=== PATIENT | female | born 1945 | race Caucasian/White ===

== ENCOUNTER 2017-04-29 17:21 | Emergency (ER) | payer MEDICARE, MEDICAID ==
[~2017-04-29] VITALS: Ht 152.4 cm; Wt 80.0 kg
[2017-04-29] MEDS ORDERED: normal saline 1000ML IV soln IVB ONE (17:35)
[2017-04-29] MEDS ORDERED: ondansetron/PF 4mg/2ml inj IV ONE (17:45)
[2017-04-29 18:02] LABS: BASOPHILS # (AUTO) 0.1 X10'3 (0-0.2); BASOPHILS % (AUTO) 0.6 % (0-1); EOSINOPHILS # (AUTO) 0.3 X10'3 (0-0.9); EOSINOPHILS % (AUTO) 2.9 % (0-6); HEMATOCRIT 40.4 % (35.0-45.0); HEMOGLOBIN 13.6 g/dl (12.0-16.0); LYMPHOCYTES # (AUTO) 2.8 X10'3 (1.1-4.8); LYMPHOCYTES % (AUTO) 28.1 % (21-51); MEAN CORPUSCULAR HEMOGLOBIN 30.8 PG (27.0-31.0); MEAN CORPUSCULAR HGB CONC 33.8 % (33.0-36.5); MEAN CORPUSCULAR VOLUME 91.3 FL (78-98); MONOCYTES # (AUTO) 0.6 X10'3 (0-0.9); NEUTROPHILS # (AUTO) 6.2 X10'3 (1.8-7.7); NEUTROPHILS % (AUTO) 62.4 % (42-75); PLATELET COUNT 403 X10'3 (140-440); RED BLOOD COUNT 4.43 X10'6 (4.20-5.60); RED CELL DISTRIBUTION WIDTH 14.2 % (11.5-14.5)
[2017-04-29 18:13] LABS: PARTIAL THROMBOPLASTIN TIME 31 SECONDS (22-32); PROTHROMBIN TIME 10.3 SECONDS (9.0-12.0)
[2017-04-29 18:20] LABS: ALANINE AMINOTRANSFERASE 50 U/L (12-78); ALBUMIN 3.3 G/DL (3.4-5.0); ALBUMIN/GLOBULIN RATIO 0.8 (1.1-1.5); ALKALINE PHOSPHATASE 90 IU/L (46-116); ANION GAP 7 (8-16); ASPARTATE AMINO TRANSFERASE 32 U/L (10-37); BILIRUBIN,TOTAL 0.3 MG/DL (0.1-1.0); BLOOD UREA NITROGEN 21 MG/DL (7-18); BUN/CREATININE RATIO 33.9 (6.6-38.0); CALCIUM 9.1 MG/DL (8.5-10.1); CHLORIDE 107 MMOL/L (99-107); CREATININE 0.62 MG/DL (0.40-0.90); GLUCOSE 91 MG/DL (70-104); POTASSIUM 3.8 MMOL/L (3.5-5.1); SODIUM 142 MMOL/L (135-145); TOTAL CARBON DIOXIDE 27.6 MMOL/L (24-32); TOTAL PROTEIN 7.2 G/DL (6.4-8.2); eGFR > 90 ML/MIN
[2017-04-29 18:31] LABS: CREATINE KINASE 83 U/L (26-192)
[2017-04-29] MEDS ORDERED: WHEE1EAC12 MC (19:33)
[2017-04-29] MEDS ORDERED: ONDA4TAB9 PO ×2 (19:33→19:49)
[2017-04-29] MEDS ORDERED: HYDR-3965 PO (19:33)
[2017-04-29] MEDS ORDERED: HYDR-565 PO (19:47)
[2017-04-29 20:58] VITALS: BP 195/86
== END 2017-04-29 21:27 | disposition home or self-care (01) ==
LOC: ER 17:22
DX: S82.191A Other fracture of upper end of right tibia, initial encounter for closed fracture (principal); S82.831A Other fracture of upper and lower end of right fibula, initial encounter for closed fracture; S80.11XA Contusion of right lower leg, initial encounter; Z86.12 Personal history of poliomyelitis; W01.0XXA Fall on same level from slipping, tripping and stumbling without subsequent striking against object, initial encounter; Y93.89 Activity, other specified; Y92.89 Other specified places as the place of occurrence of the external cause; Y99.8 Other external cause status
CPT/HCPCS: 29505; 36415; 73590; 80053; 82550; 82553; 85025; 85610; 85730; 86885; 86900; 86901; 93005; 96374; 96375; 96376; 99285; J2270; J2405; J7030

== ENCOUNTER 2017-08-25 13:16 | Emergency (ER) | payer MEDICARE, MEDICAID ==
[~2017-08-25] VITALS: Ht 152.4 cm; Wt 72.7 kg
[~2017-08-25 13:16] MED LIST: WHEE1EAC12 MC
[2017-08-25 13:50] VITALS: BP 212/85
[2017-08-25] MEDS ORDERED: CLIN-79 PO (14:22)
== END 2017-08-25 14:34 | disposition home or self-care (01) ==
LOC: ER 13:17
DX: K08.89 Other specified disorders of teeth and supporting structures (principal); I25.2 Old myocardial infarction; Z88.0 Allergy status to penicillin; Z88.2 Allergy status to sulfonamides
CPT/HCPCS: 99283

== ENCOUNTER 2022-11-04 07:15 | Inpatient (IN) | payer MEDICARE, MEDICAID ==
[~2022-11-04] VITALS: Ht 157.5 cm; Wt 94.0 kg
[2022-11-04] VITALS (24 sets, daily range): BP systolic 96–155; BP diastolic 49–89; PULSE 85–156; RESP 18–32; TEMP 97.9; O2SAT 92–100
[~2022-11-04 07:15] MED LIST changes: +CLIN-214 PO; +adenosine 3mg/ml 2ml vial IV ONE; +epiNEPHrine 0.1mg/ml 10ml syringe ONE; +etomidate 2mg/ml inj. ONE; +rocuronium 10mg/ml inj IV ONE
[2022-11-04] MEDS ORDERED: albuterol 2.5 MG/3 ML nebule CONTNEB PRN (07:30)
[2022-11-04] MEDS ORDERED: ipratropium/albuterol 3ml nebule NEB ONE (07:30)
[2022-11-04] MEDS ORDERED: methylPREDNISolone sod succ 125mg/2ml vial IV ONE (07:30)
[2022-11-04] MEDS ORDERED: magnesium 2GM in 50ml NS 50 ML IV ONE (07:35)
[2022-11-04] MEDS ORDERED: normal saline 1000ML IV soln IVB ONE (07:50)
[2022-11-04] MEDS ORDERED: CefTRIAXone/D5W-Rocephin 1gm 50 ML IV ONE (07:50)
[2022-11-04] MEDS ORDERED: azithromycin/NS 500mg/250ml 250 ML IV ONE (07:50)
[2022-11-04] MEDS ORDERED: ondansetron/PF 4mg/2ml inj IV ONE (07:55)
[2022-11-04 08:08] LABS: BASOPHILS # (AUTO) 0.1 X10'3 (0-0.2); BASOPHILS % (AUTO) 0.8 % (0-1); EOSINOPHILS % (AUTO) 0 % (0-6); HEMATOCRIT 52.1 % (35.0-45.0); HEMOGLOBIN 17.1 g/dl (12.0-16.0); LYMPHOCYTES # (AUTO) 2.4 X10'3 (1.1-4.8); LYMPHOCYTES % (AUTO) 14.7 % (21-51); MEAN CORPUSCULAR HEMOGLOBIN 29.2 PG (27.0-31.0); MEAN CORPUSCULAR HGB CONC 32.8 g/dL (33.0-36.5); MEAN PLATELET VOLUME 7.6 FL (7.4-10.4); MONOCYTES # (AUTO) 0.5 X10'3 (0-0.9); MONOCYTES % (AUTO) 3.1 % (2-12); NEUTROPHILS # (AUTO) 13.5 X10'3 (1.8-7.7); NEUTROPHILS % (AUTO) 81.4 % (42-75); PLATELET COUNT 481 X10'3 (140-440); RED BLOOD COUNT 5.86 X10'6 (4.20-5.60); RED CELL DISTRIBUTION WIDTH 13.8 % (11.5-14.5); WHITE BLOOD COUNT 16.6 X10'3 (4.5-11.0)
[2022-11-04 08:37] LABS: ALANINE AMINOTRANSFERASE 11 U/L (12-78); ALBUMIN 3.8 G/DL (3.4-5.0); ALBUMIN/GLOBULIN RATIO 0.9 (1.1-1.5); ALKALINE PHOSPHATASE 79 IU/L (46-116); ANION GAP 28 (8-16); ASPARTATE AMINO TRANSFERASE 21 U/L (10-37); BILIRUBIN,TOTAL 0.7 MG/DL (0.1-1.0); BLOOD UREA NITROGEN 14 MG/DL (7-18); BUN/CREATININE RATIO 14.3 (10.0-20.0); CALCIUM 10.3 MG/DL (8.5-10.1); CHLORIDE 100 MMOL/L (99-107); CREATININE 0.98 MG/DL (0.40-0.90); GLUCOSE 166 MG/DL (70-104); SODIUM 139 MMOL/L (135-145); eGFR 55 ML/MIN
[2022-11-04] MEDS ORDERED: LORazepam 2 mg/ml vial IV ONE (08:40)
[2022-11-04 08:42] LABS: TOTAL CARBON DIOXIDE 11.2 MMOL/L (24-32)
--- NOTE | 2022-11-04 08:44 | NUR ---
lab called with critical value for patient. CO2-11.2 and lactic acid is 6.5. Dr. Baker notified.
[2022-11-04] MEDS: nitroGLYCERIN-Tridil 50MG/D5W 250 ML IV SCH ×2 (08:45→09:04)
[2022-11-04] MEDS ORDERED: diltiazem 5mg/ml 5ml inj. IV ONE ×2 (08:45→09:10)
[2022-11-04 08:46] LABS: CLARITY,URINE CLEAR (Clear); COLOR,URINE YELLOW (Yellow); GLUCOSE, URINE NEGATIVE (Neg); KETONES,URINE >=80 mg/dl (Neg); LEUKOCYTE ESTERASE ,URINE NEGATIVE (Neg); NITRITES, URINE NEGATIVE (Neg); OCCULT BLOOD,URINE TRACE-INTACT (Neg); PH,URINE 5.5 (4.8-8.0); PROTEIN,URINE 30 mg/dl (Neg); UROBILINOGEN,URINE 0.2 E.U/dL (0.2-1.0)
[2022-11-04] MEDS ORDERED: propofol 10mg/ml 20ml vial IV ONE (08:50)
[2022-11-04 08:58] LABS: UA COLLECTION TYPE FOLEY CATH
[2022-11-04 09:00] LABS: BACTERIA,URINE FEW /HPF (Neg); MUCUS STRANDS FEW /LPF (Neg); RBC,URINE 0-2 /HPF (0-2); SQUAMOUS EPITHELIAL CELL,UR MODERATE /LPF (FEW); WBC,URINE 0-4 /HPF (0-4)
--- NOTE | 2022-11-04 09:42 | NUR ---
Attempted cardioversion for patient. 34 - Procedure time out pre MD. Pt HR 150's, SBP 75/35 0935 - Synchronized shock to 100 joules - unsuccessful 0936 - 6mg Adenosine given IV push, rate slowed to 40's 0940 - 12mg Adenosine given IV push, rate slowed to 30's (pt in SR as underlying rhythm). 40 - VS: HR 155 ST, BP 101/50, pt intubated prior
[2022-11-04] MEDS ORDERED: normal saline 1000ml 1,000 ML IV ONE ×2 (09:50→13:30)
[2022-11-04 10:14] LABS: ABG BASE EXCESS -18.6 mmol/L (-2.0-2.0); ABG HCO3 7.8 mmol/L (22.0-26.0); ABG OXYGEN SATURATION 97.3 % (94-97); ABG PCO2 (T) 21.5 mmHg (32.0-45.0); ABG PO2 (T) 110.6 mmHg (75.0-100.0); FCOHb 0.3 % (0.0-3.9); FMetHb 0.4 % (0.0-1.5); FO2Hb 96.6 % (94-97); PATIENT TEMPERATURE 36.8; PEEP 8 cm H2O; RESPIRATORY RATE 18 b/min; TIDAL VOLUME 475 mL; TOTAL HEMOGLOBIN 14.7 G/dl (12.0-16.0)
[2022-11-04] MEDS ORDERED: normal saline 500ml IV soln 500 ML IV ONE (10:45)
[2022-11-04] MEDS: normal saline 1000ml 1,000 ML IV SCH ×2 (10:50→21:38)
[2022-11-04] MEDS ORDERED: acetaminophen 325mg tablet PO PRN ×2 (10:50)
[2022-11-04] MEDS ORDERED: magnesium hydroxide 30ml (MOM) UD suspension PO PRN (10:50)
[2022-11-04] MEDS: propofol 1000mg/100ml bottle 100 ML IV PRN (11:34)
--- NOTE | 2022-11-04 12:16 | NUR ---
Report called to NENITA Ferreira in CICU. Will transfer pt with RT.
--- NOTE | 2022-11-04 13:00 | NUR ---
pt received by mike from er. pt sedated on diprivan gtt- fentanyl added. hr 120's- 1 liter of ns bolus added. uo adequate. caregiver at bs
[2022-11-04] MEDS: FENTANYL-0.9 % NACL/PF 100 ML IV SCH (13:17)
--- NOTE | 2022-11-04 13:23 | NUR ---
Nutrition consult: Pt admit for PNA, tachycardia, and hypoxic respiratory failure. Currently intubated with Propofol visualized at bedside to be running at 3.84 mL/hr providing 101 kcal/day. Per EMR pt with an OGT in place though no TF consult at this time. TF recs below for if expected prolonged intubation and to receive nutrition support. Will continue to follow closely and make recommendations as appropriate. Recommendations: 1) IF TF and Propofol at 3.84 mL/hr (101 kcal/day), continuous Vital AF via OGT with 50 mL/hr goal rate. Begin at 20 mL/hr and advance by 30 mL Q8H as tolerated to goal rate. Once at goal to provide 1200 mL total volume/day, 1440 kcal, 90 g protein, and 973 mL water 2) Monitor Propofol rate and need to adjust recs; IF Propofol discontinued increase TF goal rate to 55 mL/hr 3) IF TF, prealbumin q Monday/; daily scaled weights 4) Routine bowel care Addendum: 11/04/22 at [address] Amended: Links added.
[2022-11-04] MEDS: levoFLOXACIN-Levaquin 750MG/D5 150 ML IV SCH (14:29)
[2022-11-04 16:17] LABS: ABG BASE EXCESS -15.3 mmol/L (-2.0-2.0); ABG HCO3 10.5 mmol/L (22.0-26.0); ABG OXYGEN SATURATION 94.8 % (94-97); ABG PCO2 (T) 24.5 mmHg (32.0-45.0); ABG PO2 (T) 73.5 mmHg (75.0-100.0); ALLEN'S TEST POSITIVE; FCOHb 0.3 % (0.0-3.9); FMetHb 0.5 % (0.0-1.5); PATIENT TEMPERATURE 35.7; PEEP 8 cm H2O; RESPIRATORY RATE 18 b/min; TIDAL VOLUME 400 mL; TOTAL HEMOGLOBIN 13.7 G/dl (12.0-16.0)
[2022-11-04] MEDS ORDERED: METO25TA6 PO (16:37)
[2022-11-04] MEDS ORDERED: ASPIRIN PO (16:38)
[2022-11-04] MEDS ORDERED: metoprolol succinate 25mg (24-HOUR) SR. Tablet PO SCH (18:00)
[2022-11-04] MEDS: metoprolol tartrate 12.5mg (1/2 tablet) PO SCH (20:13)
[2022-11-04] MEDS ORDERED: sodium bicarbonate (8.4%) inj. 1 MEQ/ML ML IV ONE ×2 (23:25→23:35)
[2022-11-05] VITALS (35 sets, daily range): BP systolic 92–143; BP diastolic 47–77; PULSE 61–104; RESP 18–24; O2SAT 94–98
[2022-11-05 02:42] LABS: BASOPHILS % (AUTO) 0.2 % (0-1); EOSINOPHILS % (AUTO) 0 % (0-6); HEMATOCRIT 36.4 % (35.0-45.0); HEMOGLOBIN 12.3 g/dl (12.0-16.0); LYMPHOCYTES # (AUTO) 0.7 X10'3 (1.1-4.8); LYMPHOCYTES % (AUTO) 5.4 % (21-51); MEAN CORPUSCULAR HEMOGLOBIN 29.9 PG (27.0-31.0); MEAN CORPUSCULAR HGB CONC 33.8 g/dL (33.0-36.5); MEAN CORPUSCULAR VOLUME 88.5 FL (78-98); MEAN PLATELET VOLUME 7.2 FL (7.4-10.4); MONOCYTES # (AUTO) 0.5 X10'3 (0-0.9); MONOCYTES % (AUTO) 4.3 % (2-12); NEUTROPHILS # (AUTO) 11.3 X10'3 (1.8-7.7); NEUTROPHILS % (AUTO) 90.1 % (42-75); PLATELET COUNT 294 X10'3 (140-440); RED BLOOD COUNT 4.12 X10'6 (4.20-5.60); RED CELL DISTRIBUTION WIDTH 13.8 % (11.5-14.5); WHITE BLOOD COUNT 12.5 X10'3 (4.5-11.0)
[2022-11-05] MEDS: normal saline 1000ml 1,000 ML IV SCH ×3 (02:50→17:57)
[2022-11-05 02:56] LABS: ALANINE AMINOTRANSFERASE 7 U/L (12-78); ALBUMIN 2.2 G/DL (3.4-5.0); ALBUMIN/GLOBULIN RATIO 0.8 (1.1-1.5); ALKALINE PHOSPHATASE 43 IU/L (46-116); ANION GAP 18 (8-16); ASPARTATE AMINO TRANSFERASE 26 U/L (10-37); BILIRUBIN,TOTAL 0.3 MG/DL (0.1-1.0); BLOOD UREA NITROGEN 9 MG/DL (7-18); CALCIUM 8.2 MG/DL (8.5-10.1); CHLORIDE 114 MMOL/L (99-107); CREATININE 0.53 MG/DL (0.40-0.90); GLUCOSE 105 MG/DL (70-104); MAGNESIUM 1.6 MG/DL (1.5-2.4); POTASSIUM 3.4 MMOL/L (3.5-5.1); SODIUM 147 MMOL/L (135-145); TOTAL CARBON DIOXIDE 15.3 MMOL/L (24-32); TRIGLYCERIDES 92 MG/DL (20-135); eGFR > 90 ML/MIN
[2022-11-05 03:10] LABS: ABG BASE EXCESS -9.1 mmol/L (-2.0-2.0); ABG HCO3 13.8 mmol/L (22.0-26.0); ABG OXYGEN SATURATION 95.2 % (94-97); ABG PCO2 (T) 22.7 mmHg (32.0-45.0); ABG PO2 (T) 70.3 mmHg (75.0-100.0); ALLEN'S TEST Modified; FCOHb 0.2 % (0.0-3.9); FMetHb 0.3 % (0.0-1.5); FO2Hb 94.7 % (94-97); PATIENT TEMPERATURE 36.6; PEEP 8 cm H2O; RESPIRATORY RATE 18 b/min; TIDAL VOLUME 400 mL; TOTAL HEMOGLOBIN 13.2 G/dl (12.0-16.0)
[2022-11-05 03:31] LABS: HEMOGLOBIN A1C 5.3 % (4.5-6.2)
[2022-11-05] MEDS ORDERED: magnesium 2GM in 50ml NS 50 ML IV PRN (03:35)
[2022-11-05] MEDS ORDERED: potassium Cl 40MEQ/1/2NS 520ml 520 ML IV PRN (03:35)
[2022-11-05] MEDS ORDERED: magnesium 4gm in 100ml NS 100 ML IV PRN (03:35)
[2022-11-05] MEDS ORDERED: potassium Cl 20 mEq SR tablet PO PRN ×2 (03:35)
[2022-11-05] MEDS: FENTANYL-0.9 % NACL/PF 100 ML IV SCH ×2 (05:12→16:23)
[2022-11-05] MEDS: K and/or MAG REPLACEMENT MC SCH (06:29)
--- NOTE | 2022-11-05 06:30 | NUR ---
Patient in room CICU 2009. I have received report from eron and had the opportunity to ask questions and assume patient care.
[2022-11-05] MEDS: CefTRIAXone 2gm/D5W 50ml BAG 50 ML IV SCH (08:17)
[2022-11-05] MEDS: enoxaparin 40mg/0.4ml syringe SUBCUT SCH (08:18)
[2022-11-05] MEDS: metoprolol tartrate 12.5mg (1/2 tablet) PO SCH ×2 (08:18→20:48)
[2022-11-05] MEDS: levoFLOXACIN-Levaquin 750MG/D5 150 ML IV SCH (08:18)
[2022-11-05 08:25] LABS: PHOSPHORUS 2.9 MG/DL (2.3-4.5)
--- NOTE | 2022-11-05 09:41 | NUR ---
TF consult: Per EMR pt remains intubated at this time. Per verbal d/w RN pt continues receiving Propofol at 20 mcg/kg/min (7.224 mL/hr) providing 191 kcal/day. A scaled weight has been obtained, estimated nutrient needs and TF recs have been adjusted accordingly, see below. Noted pt with a low Clyde of 10. Per EMR pt with no edema or wounds. Will continue to follow closely. Recommendations: 1) Given Propofol at 7.224 mL/hr (191 kcal/day), continuous Vital AF via OGT with 55 mL/hr goal rate to provide 1320 mL total volume/day, 1584 kcal, 99 g protein, and 1071 mL water 2) Additional 120 mL water flush Q4H; monitor serum Na 3) Monitor Propofol rate and need to adjust recs 4) Prealbumin q Monday/ 5) Daily scaled weights 6) Routine bowel care Addendum: 11/05/22 at [address] Amended: Links added.
[2022-11-05] MEDS: pantoprazole 40mg IV 80 MG in normal saline 100ml IV soln 100 ML IV SCH (11:05)
--- NOTE | 2022-11-05 12:00 | NUR ---
tf started. pt sedated but opens eyes and follows commands, nods to questions. update to md re uo, will continue ivf as ordered. plan to keep intubated for 3 days. son and caregiver at bs off and on. son very anxious at times, must educate him re things medical.
[2022-11-05] MEDS: propofol 1000mg/100ml bottle 100 ML IV PRN (13:58)
[2022-11-05] MEDS: mineral oil/petrolatum ophthal oint EACHEYE SCH (20:48)
[2022-11-06] VITALS (34 sets, daily range): BP systolic 94–205; BP diastolic 46–109; PULSE 40–106; RESP 16–26; O2SAT 87–98
[2022-11-06] MEDS: normal saline 1000ml 1,000 ML IV SCH (01:17)
[2022-11-06] MEDS: propofol 1000mg/100ml bottle 100 ML IV PRN (01:17)
[2022-11-06] MEDS: mineral oil/petrolatum ophthal oint EACHEYE SCH ×4 (02:00→19:43)
[2022-11-06 02:44] LABS: BASOPHILS % (AUTO) 0.3 % (0-1); EOSINOPHILS % (AUTO) 0.3 % (0-6); HEMATOCRIT 36.3 % (35.0-45.0); HEMOGLOBIN 12.2 g/dl (12.0-16.0); LYMPHOCYTES # (AUTO) 1.7 X10'3 (1.1-4.8); LYMPHOCYTES % (AUTO) 14.8 % (21-51); MEAN CORPUSCULAR HEMOGLOBIN 29.9 PG (27.0-31.0); MEAN CORPUSCULAR HGB CONC 33.6 g/dL (33.0-36.5); MEAN PLATELET VOLUME 7.6 FL (7.4-10.4); MONOCYTES # (AUTO) 0.5 X10'3 (0-0.9); MONOCYTES % (AUTO) 4.5 % (2-12); NEUTROPHILS # (AUTO) 9.2 X10'3 (1.8-7.7); NEUTROPHILS % (AUTO) 80.1 % (42-75); PLATELET COUNT 245 X10'3 (140-440); RED BLOOD COUNT 4.08 X10'6 (4.20-5.60); RED CELL DISTRIBUTION WIDTH 14.5 % (11.5-14.5); WHITE BLOOD COUNT 11.4 X10'3 (4.5-11.0)
[2022-11-06 03:15] LABS: ALANINE AMINOTRANSFERASE 8 U/L (12-78); ALBUMIN 2.1 G/DL (3.4-5.0); ALBUMIN/GLOBULIN RATIO 0.8 (1.1-1.5); ALKALINE PHOSPHATASE 41 IU/L (46-116); ANION GAP 14 (8-16); ASPARTATE AMINO TRANSFERASE 21 U/L (10-37); BILIRUBIN,TOTAL 0.2 MG/DL (0.1-1.0); BLOOD UREA NITROGEN 13 MG/DL (7-18); BUN/CREATININE RATIO 24.5 (10.0-20.0); CALCIUM 8.4 MG/DL (8.5-10.1); CHLORIDE 114 MMOL/L (99-107); CREATININE 0.53 MG/DL (0.40-0.90); GLUCOSE 115 MG/DL (70-104); MAGNESIUM 1.7 MG/DL (1.5-2.4); PHOSPHORUS 1.8 MG/DL (2.3-4.5); POTASSIUM 3.4 MMOL/L (3.5-5.1); SODIUM 144 MMOL/L (135-145); TOTAL CARBON DIOXIDE 15.8 MMOL/L (24-32); TOTAL PROTEIN 4.8 G/DL (6.4-8.2); eGFR > 90 ML/MIN
[2022-11-06 03:19] LABS: ABG HCO3 14.4 mmol/L (22.0-26.0); ABG OXYGEN SATURATION 93.6 % (94-97); ABG PCO2 (T) 24.1 mmHg (32.0-45.0); FCOHb 0.3 % (0.0-3.9); FMetHb 0.2 % (0.0-1.5); FO2Hb 93.1 % (94-97); PATIENT TEMPERATURE 36.3; PEEP 8 cm H2O; RESPIRATORY RATE 18 b/min; TIDAL VOLUME 400 mL; TOTAL HEMOGLOBIN 12.1 G/dl (12.0-16.0)
[2022-11-06] MEDS ORDERED: potassium phosphate inj 15 MMOL in normal saline 250ml IV soln 250 ML IV ONE (04:35)
[2022-11-06] MEDS: ringers solution, lacted 1,000 ML IV SCH ×2 (05:05→19:08)
[2022-11-06] MEDS ORDERED: etomidate 2mg/ml inj. ONE (08:00)
[2022-11-06] MEDS: K and/or MAG REPLACEMENT MC SCH (08:00)
[2022-11-06] MEDS: metoprolol tartrate 12.5mg (1/2 tablet) PO SCH (08:00)
[2022-11-06] MEDS ORDERED: rocuronium 10mg/ml inj IV ONE (08:00)
[2022-11-06] MEDS: pantoprazole 40mg IV 80 MG in normal saline 100ml IV soln 100 ML IV SCH (08:35)
[2022-11-06] MEDS: CefTRIAXone 2gm/D5W 50ml BAG 50 ML IV SCH (08:35)
[2022-11-06] MEDS: enoxaparin 40mg/0.4ml syringe SUBCUT SCH (08:37)
[2022-11-06] MEDS: nitroGLYCERIN-Tridil 50MG/D5W 250 ML IV SCH (08:45)
[2022-11-06] MEDS: metoprolol tartrate 25mg tablet NG SCH ×3 (10:28→19:41)
--- NOTE | 2022-11-06 10:32 | NUR ---
Malnutrition Consult: Pt unsure of wt loss but reported decreased intake OCCUPATIONAL HEALTH PHYSICIAN per RN Malnutrition Screen. Pt remains intubated w/ mild weakness, no edema/wounds, no prior scaled wt hx current appropriate wt, and hx N/V 2 days OCCUPATIONAL HEALTH PHYSICIAN per EMR. Pt likely w/ some decreased intake OCCUPATIONAL HEALTH PHYSICIAN though at this time lacks minimum malnutrition criteria; will monitor for further malnutrition criteria this admit. Addendum: 11/06/22 at [address] Amended: Links added.
[2022-11-06] MEDS: labetalol 20mg/4ml (5mg/ml) syringe IV PRN ×3 (11:34→17:04)
[2022-11-06] MEDS ORDERED: racepinephrine 11.25mg/0.5ml nebule IH ONE (14:40)
[2022-11-06] MEDS ORDERED: racepinephrine 11.25mg/0.5ml nebule ONE (14:42)
[2022-11-06] MEDS: dexamethasone 4mg/ml inj IV SCH ×2 (14:57→19:41)
[2022-11-06] MEDS ORDERED: fentaNYL/PF 50MCG/1 ML 2ML syringe ONE ×2 (15:15→15:16)
[2022-11-06] MEDS ORDERED: FENTANYL-0.9 % NACL/PF 100 ML IV PRN (15:20)
[2022-11-06] MEDS: propofol 1000mg/100ml bottle 100 ML IV SCH ×2 (17:07→19:42)
[2022-11-06] MEDS: FENTANYL-0.9 % NACL/PF 100 ML IV SCH (17:08)
--- NOTE | 2022-11-06 17:36 | NUR ---
1420 extubated after 45 minutes of tpiece trial, cuff leak was present, BP controlled, patient cooperative. Stridor promptly ensued, racemic epi via neb given, with poor results, manual bagging with increased resistance ensued, vicki down to 30's , sats to 70's, failed bipap, unable to meet volumes. 1520- MD here, reintubated, VSS. 1700- Pt more alert, nodded head to yes when asked if head feels better, (cut hair) as previously discussed with patient and son. 1710- ventilator failure, manually bagged while equipment exchanged, BP 200/100's, labetalol 20mg given IV (3rd dose today.) VSS now.
--- NOTE | 2022-11-06 23:16 | NUR ---
O2 sats consistently >95% on 50% FiO2. Weaned FiO2 to 45% with O2 sats dropping to 86% after 10 min. 100% FiO2 provided until sats >95% and FiO2 returned to 50%.
[2022-11-07] VITALS (28 sets, daily range): BP systolic 88–179; BP diastolic 45–94; PULSE 67–101; RESP 18–20; O2SAT 90–100
[2022-11-07] MEDS: FENTANYL-0.9 % NACL/PF 100 ML IV SCH ×3 (00:39→20:35)
[2022-11-07] MEDS: metoprolol tartrate 25mg tablet NG SCH ×2 (02:18→08:15)
[2022-11-07] MEDS: mineral oil/petrolatum ophthal oint EACHEYE SCH ×4 (02:18→20:37)
[2022-11-07] MEDS: dexamethasone 4mg/ml inj IV SCH ×4 (02:18→20:37)
[2022-11-07 03:14] LABS: ABG BASE EXCESS -8.2 mmol/L (-2.0-2.0); ABG HCO3 15.9 mmol/L (22.0-26.0); ABG OXYGEN SATURATION 96.9 % (94-97); ABG PCO2 (T) 29.1 mmHg (32.0-45.0); ABG PO2 (T) 92.9 mmHg (75.0-100.0); ALLEN'S TEST Modified; FCOHb 0.3 % (0.0-3.9); FMetHb 0.4 % (0.0-1.5); FO2Hb 96.2 % (94-97); PATIENT TEMPERATURE 37.1; PEEP 10 cm H2O; RESPIRATORY RATE 18 b/min; TIDAL VOLUME 400 mL; TOTAL HEMOGLOBIN 13.2 G/dl (12.0-16.0)
[2022-11-07] MEDS ORDERED: polyethylene glycol 3350 17gm powd pack PO ONE (04:24)
[2022-11-07] MEDS ORDERED: furosemide 20 MG/2 ML vial IV ONE (04:25)
[2022-11-07 06:13] LABS: HEMOGLOBIN 12.8 g/dl (12.0-16.0); MEAN CORPUSCULAR HGB CONC 33.2 g/dL (33.0-36.5); MONOCYTES # (AUTO) 0.1 X10'3 (0-0.9)
[2022-11-07 06:16] LABS: BASOPHILS % (AUTO) 0.3 % (0-1); EOSINOPHILS % (AUTO) 0 % (0-6); HEMATOCRIT 38.6 % (35.0-45.0); LYMPHOCYTES # (AUTO) 0.6 X10'3 (1.1-4.8); LYMPHOCYTES % (AUTO) 6.5 % (21-51); MEAN CORPUSCULAR HEMOGLOBIN 29.7 PG (27.0-31.0); MEAN CORPUSCULAR VOLUME 89.7 FL (78-98); MEAN PLATELET VOLUME 8.4 FL (7.4-10.4); MONOCYTES % (AUTO) 1.4 % (2-12); NEUTROPHILS % (AUTO) 91.8 % (42-75); PLATELET COUNT 239 X10'3 (140-440); RED BLOOD COUNT 4.31 X10'6 (4.20-5.60); RED CELL DISTRIBUTION WIDTH 14.8 % (11.5-14.5); WHITE BLOOD COUNT 8.7 X10'3 (4.5-11.0)
[2022-11-07 06:19] LABS: ABG BASE EXCESS -7.3 mmol/L (-2.0-2.0); ABG HCO3 15.3 mmol/L (22.0-26.0); ABG OXYGEN SATURATION 94.6 % (94-97); ABG PCO2 (T) 23.6 mmHg (32.0-45.0); ABG PO2 (T) 63.9 mmHg (75.0-100.0); ALLEN'S TEST Yes; FCOHb 0.3 % (0.0-3.9); FMetHb 0.3 % (0.0-1.5); PATIENT TEMPERATURE 36.2; PEEP 8 cm H2O; RESPIRATORY RATE 18 b/min; TIDAL VOLUME 400 mL; TOTAL HEMOGLOBIN 13.6 G/dl (12.0-16.0)
[2022-11-07 06:25] LABS: MINUTE VOLUME 7.1 L/min; RESPIRATORY RATE (OBSERVED) 18 b/min
[2022-11-07 06:46] LABS: ALANINE AMINOTRANSFERASE 10 U/L (12-78); ALBUMIN 2.1 G/DL (3.4-5.0); ALBUMIN/GLOBULIN RATIO 0.7 (1.1-1.5); ALKALINE PHOSPHATASE 55 IU/L (46-116); ANION GAP 15 (8-16); ASPARTATE AMINO TRANSFERASE 20 U/L (10-37); BILIRUBIN,TOTAL 0.3 MG/DL (0.1-1.0); BLOOD UREA NITROGEN 14 MG/DL (7-18); BUN/CREATININE RATIO 29.2 (10.0-20.0); CALCIUM 8.4 MG/DL (8.5-10.1); CHLORIDE 111 MMOL/L (99-107); CREATININE 0.48 MG/DL (0.40-0.90); GLUCOSE 195 MG/DL (70-104); MAGNESIUM 1.7 MG/DL (1.5-2.4); PHOSPHORUS 3.2 MG/DL (2.3-4.5); POTASSIUM 3.8 MMOL/L (3.5-5.1); PREALBUMIN 18.1 MG/DL (19-36); SODIUM 142 MMOL/L (135-145); TOTAL CARBON DIOXIDE 15.6 MMOL/L (24-32); TOTAL PROTEIN 5.2 G/DL (6.4-8.2); eGFR > 90 ML/MIN
[2022-11-07] MEDS: K and/or MAG REPLACEMENT MC SCH (08:00)
[2022-11-07] MEDS ORDERED: levoFLOXACIN-Levaquin 750MG/D5 150 ML IV SCH (08:00)
[2022-11-07] MEDS: ringers solution, lacted 1,000 ML IV SCH ×2 (08:12→08:37)
[2022-11-07] MEDS: enoxaparin 40mg/0.4ml syringe SUBCUT SCH (08:16)
[2022-11-07] MEDS: CefTRIAXone 2gm/D5W 50ml BAG 50 ML IV SCH (08:22)
[2022-11-07] MEDS: metroNIDAZOLE-Flagyl 500mg/NS 100 ML IV SCH ×2 (10:52→16:12)
[2022-11-07] MEDS ORDERED: acetaminophen 325mg/10.15ml oral unit dose solution OGT PRN ×2 (12:06→12:07)
[2022-11-07] MEDS ORDERED: magnesium hydroxide 30ml (MOM) UD suspension OGT PRN (12:07)
[2022-11-07] MEDS ORDERED: POTASSIUM BICARB 20meq eff tab 20 MEQ TABLET.EFF OGT PRN (12:09)
[2022-11-07] MEDS ORDERED: DEXTROSE 15 GM of carb/4 tabs (each vial/BOTTLE has 4 tablets) PO PRN ×2 (14:45)
[2022-11-07] MEDS ORDERED: glucagon, human recombinant 1mg kit SUBCUT PRN (14:45)
[2022-11-07] MEDS ORDERED: dextrose 50%-water 50ml dispensing syringe IV PRN ×2 (14:45)
[2022-11-07] MEDS: docusate sodium 100mg/10ml UD cup OGT SCH ×2 (14:48→20:36)
[2022-11-07] MEDS: metoclopramide 5mg/5ml oral solution OGT SCH ×2 (14:48→20:36)
[2022-11-07] MEDS: metoprolol tartrate 25mg tablet OGT SCH ×2 (14:49→20:35)
[2022-11-07] MEDS ORDERED: mineral oil/petrolatum ophthal oint EACHEYE SCH (20:00)
[2022-11-07] MEDS: nystatin 15 GM powder TP SCH (20:37)
[2022-11-07] MEDS: polyethylene glycol 3350 17gm powd pack OGT SCH (20:37)
[2022-11-07] MEDS: insulin glargine (Lantus) pen - multi-dose SQ SCH (21:00)
[2022-11-07] MEDS: insulin regular, human U-100 3ml vial - multi-dose SQ SCH (21:01)
[2022-11-08] VITALS (36 sets, daily range): BP systolic 109–245; BP diastolic 52–145; PULSE 65–102; RESP 15–25; O2SAT 90–96
[2022-11-08] MEDS: metroNIDAZOLE-Flagyl 500mg/NS 100 ML IV SCH ×3 (00:04→15:15)
[2022-11-08] MEDS: ringers solution, lacted 1,000 ML IV SCH ×3 (00:06→14:23)
--- NOTE | 2022-11-08 00:10 | NUR ---
TF residual 350 at 2000. 300 returned, pt repositioned to facilitate gastric emptying, and TF rate decreased to 30ml/hr. residual check at 0000 is 470 ml. residual returned and TF turned off at this time
[2022-11-08] MEDS: metoclopramide 5mg/5ml oral solution OGT SCH ×2 (02:00→07:39)
[2022-11-08] MEDS: dexamethasone 4mg/ml inj IV SCH ×4 (02:16→20:29)
[2022-11-08] MEDS: metoprolol tartrate 25mg tablet OGT SCH ×3 (02:16→20:29)
[2022-11-08] MEDS: mineral oil/petrolatum ophthal oint EACHEYE SCH ×4 (02:16→20:00)
[2022-11-08] MEDS: insulin regular, human U-100 3ml vial - multi-dose SQ SCH ×3 (02:28→20:48)
[2022-11-08] MEDS: FENTANYL-0.9 % NACL/PF 100 ML IV SCH ×2 (03:24→11:36)
[2022-11-08 03:30] LABS: ABG BASE EXCESS -5.4 mmol/L (-2.0-2.0); ABG HCO3 18.2 mmol/L (22.0-26.0); ABG OXYGEN SATURATION 96.6 % (94-97); ABG PCO2 (T) 29.4 mmHg (32.0-45.0); ABG PO2 (T) 83.5 mmHg (75.0-100.0); ALLEN'S TEST Modified; FCOHb 0.3 % (0.0-3.9); FMetHb 0.2 % (0.0-1.5); FO2Hb 96.1 % (94-97); PATIENT TEMPERATURE 36.4; PEEP 10 cm H2O; RESPIRATORY RATE 18 b/min; TIDAL VOLUME 400 mL; TOTAL HEMOGLOBIN 13.2 G/dl (12.0-16.0)
[2022-11-08] MEDS: labetalol 20mg/4ml (5mg/ml) syringe IV PRN ×2 (06:06→10:00)
[2022-11-08 06:10] LABS: BASOPHILS % (AUTO) 0.3 % (0-1); EOSINOPHILS % (AUTO) 0 % (0-6); HEMOGLOBIN 12.9 g/dl (12.0-16.0); LYMPHOCYTES # (AUTO) 0.6 X10'3 (1.1-4.8); LYMPHOCYTES % (AUTO) 6.6 % (21-51); MEAN CORPUSCULAR HEMOGLOBIN 29.8 PG (27.0-31.0); MEAN CORPUSCULAR VOLUME 87.8 FL (78-98); MEAN PLATELET VOLUME 8.1 FL (7.4-10.4); MONOCYTES # (AUTO) 0.3 X10'3 (0-0.9); MONOCYTES % (AUTO) 2.9 % (2-12); NEUTROPHILS # (AUTO) 8.5 X10'3 (1.8-7.7); NEUTROPHILS % (AUTO) 90.2 % (42-75); PLATELET COUNT 257 X10'3 (140-440); RED BLOOD COUNT 4.33 X10'6 (4.20-5.60); RED CELL DISTRIBUTION WIDTH 14.5 % (11.5-14.5); WHITE BLOOD COUNT 9.4 X10'3 (4.5-11.0)
[2022-11-08 06:25] LABS: ALANINE AMINOTRANSFERASE 12 U/L (12-78); ALBUMIN 2.2 G/DL (3.4-5.0); ALBUMIN/GLOBULIN RATIO 0.7 (1.1-1.5); ALKALINE PHOSPHATASE 53 IU/L (46-116); ANION GAP 13 (8-16); ASPARTATE AMINO TRANSFERASE 14 U/L (10-37); BILIRUBIN,TOTAL 0.2 MG/DL (0.1-1.0); BLOOD UREA NITROGEN 17 MG/DL (7-18); BUN/CREATININE RATIO 34.7 (10.0-20.0); CALCIUM 8.8 MG/DL (8.5-10.1); CHLORIDE 111 MMOL/L (99-107); CREATININE 0.49 MG/DL (0.40-0.90); GLUCOSE 136 MG/DL (70-104); MAGNESIUM 1.6 MG/DL (1.5-2.4); PHOSPHORUS 2.5 MG/DL (2.3-4.5); POTASSIUM 3.6 MMOL/L (3.5-5.1); SODIUM 144 MMOL/L (135-145); TOTAL CARBON DIOXIDE 20.1 MMOL/L (24-32); TOTAL PROTEIN 5.4 G/DL (6.4-8.2); eGFR > 90 ML/MIN
--- NOTE | 2022-11-08 06:27 | NUR ---
Patient in room CICU 2009. I have received report from eron GUTIERRES and had the opportunity to ask questions and assume patient care.
[2022-11-08] MEDS: pantoprazole 40MG/NS 100ML BAG 100 ML IV SCH (07:13)
[2022-11-08] MEDS: enoxaparin 40mg/0.4ml syringe SUBCUT SCH (07:18)
[2022-11-08] MEDS: docusate sodium 100mg/10ml UD cup OGT SCH ×2 (07:18→20:27)
[2022-11-08] MEDS: nystatin 15 GM powder TP SCH ×2 (07:18→20:32)
[2022-11-08] MEDS: CefTRIAXone 2gm/D5W 50ml BAG 50 ML IV SCH (07:50)
[2022-11-08] MEDS ORDERED: cloNIDine 0.1 mg tablet PO SCH (08:00)
[2022-11-08] MEDS: racepinephrine 11.25mg/0.5ml nebule IH SCH ×2 (08:00→13:13)
[2022-11-08] MEDS: nitroGLYCERIN-Tridil 50MG/D5W 250 ML IV SCH (08:45)
[2022-11-08] MEDS: amLODIPine 5mg tablet OGT SCH (10:12)
[2022-11-08] MEDS ORDERED: metoprolol tartrate 25mg tablet PO ONE ×2 (10:15→10:45)
--- NOTE | 2022-11-08 10:30 | NUR ---
Dr. Juárez, Milena Houston/pharmacist, Lead Laying And Gluing Machine Operator at bedside for team rounding.RN addressed low urine output(15ml-30ml/hour), high residuals( 200-400ml) and high blood pressure.New orders received and carried out. FI02 50% with peep of 10- no change with vent settings per Dr. Juárez.We will monitor.
[2022-11-08] MEDS ORDERED: niCARDipine-NS 40mg/200ml IVPB 200 ML IV ONE (11:09)
[2022-11-08] MEDS: hyDRALAzine 10mg tablet PO SCH ×2 (11:57→20:28)
[2022-11-08] MEDS ORDERED: metoprolol tartrate 25mg tablet OGT SCH (12:00)
[2022-11-08] MEDS: erythromycin ethylsuccinate 200mg/5ml 200ml bottle PO SCH ×2 (13:16→21:02)
[2022-11-08] MEDS: cloNIDine 0.1 mg tablet OGT SCH (15:15)
--- NOTE | 2022-11-08 18:12 | NUR ---
Problems reprioritized. Patient report given, questions answered & plan of care reviewed with Belkis GUTIERRES.
[2022-11-08] MEDS: polyethylene glycol 3350 17gm powd pack OGT SCH (20:29)
[2022-11-08] MEDS: insulin glargine (Lantus) pen - multi-dose SQ SCH (20:49)
[2022-11-08] MEDS: ondansetron/PF 4mg/2ml inj IV PRN (21:20)
[2022-11-09] VITALS (36 sets, daily range): BP systolic 117–167; BP diastolic 51–77; PULSE 62–88; RESP 10–26; O2SAT 83–95
[2022-11-09] MEDS: metroNIDAZOLE-Flagyl 500mg/NS 100 ML IV SCH ×3 (00:20→15:12)
[2022-11-09] MEDS: cloNIDine 0.1 mg tablet OGT SCH ×3 (00:21→15:11)
[2022-11-09] MEDS: FENTANYL-0.9 % NACL/PF 100 ML IV SCH ×2 (00:55→07:29)
[2022-11-09] MEDS: mineral oil/petrolatum ophthal oint EACHEYE SCH ×4 (02:00→20:23)
[2022-11-09] MEDS: dexamethasone 4mg/ml inj IV SCH ×4 (02:17→20:23)
[2022-11-09] MEDS: erythromycin ethylsuccinate 200mg/5ml 200ml bottle PO SCH ×5 (02:17→20:00)
[2022-11-09] MEDS: insulin regular, human U-100 3ml vial - multi-dose SQ SCH ×3 (02:19→14:11)
[2022-11-09 04:05] LABS: ABG BASE EXCESS -2.8 mmol/L (-2.0-2.0); ABG OXYGEN SATURATION 93.4 % (94-97); ABG PCO2 (T) 29.9 mmHg (32.0-45.0); ABG PO2 (T) 65.9 mmHg (75.0-100.0); ALLEN'S TEST Modified; FCOHb 0.3 % (0.0-3.9); FMetHb 0.2 % (0.0-1.5); FO2Hb 92.9 % (94-97); PEEP 8 cm H2O; RESPIRATORY RATE 16 b/min; TIDAL VOLUME 400 mL; TOTAL HEMOGLOBIN 14.1 G/dl (12.0-16.0)
[2022-11-09] MEDS: hyDRALAzine 10mg tablet PO SCH ×3 (05:50→20:24)
[2022-11-09 06:45] LABS: BASOPHILS % (AUTO) 0.2 % (0-1); EOSINOPHILS % (AUTO) 0 % (0-6); HEMATOCRIT 40.3 % (35.0-45.0); HEMOGLOBIN 13.5 g/dl (12.0-16.0); LYMPHOCYTES # (AUTO) 0.8 X10'3 (1.1-4.8); LYMPHOCYTES % (AUTO) 5.7 % (21-51); MEAN CORPUSCULAR HEMOGLOBIN 29.5 PG (27.0-31.0); MEAN CORPUSCULAR HGB CONC 33.6 g/dL (33.0-36.5); MEAN CORPUSCULAR VOLUME 87.9 FL (78-98); MONOCYTES # (AUTO) 0.3 X10'3 (0-0.9); MONOCYTES % (AUTO) 2.2 % (2-12); NEUTROPHILS % (AUTO) 91.9 % (42-75); PLATELET COUNT 330 X10'3 (140-440); RED BLOOD COUNT 4.58 X10'6 (4.20-5.60); RED CELL DISTRIBUTION WIDTH 14.5 % (11.5-14.5); WHITE BLOOD COUNT 14.1 X10'3 (4.5-11.0)
[2022-11-09 06:56] LABS: ALANINE AMINOTRANSFERASE 19 U/L (12-78); ALBUMIN 2.3 G/DL (3.4-5.0); ALBUMIN/GLOBULIN RATIO 0.7 (1.1-1.5); ALKALINE PHOSPHATASE 59 IU/L (46-116); ANION GAP 15 (8-16); ASPARTATE AMINO TRANSFERASE 19 U/L (10-37); BILIRUBIN,TOTAL 0.4 MG/DL (0.1-1.0); BLOOD UREA NITROGEN 19 MG/DL (7-18); BUN/CREATININE RATIO 48.7 (10.0-20.0); CALCIUM 8.8 MG/DL (8.5-10.1); CHLORIDE 107 MMOL/L (99-107); CREATININE 0.39 MG/DL (0.40-0.90); GLUCOSE 151 MG/DL (70-104); MAGNESIUM 1.7 MG/DL (1.5-2.4); PHOSPHORUS 2.5 MG/DL (2.3-4.5); POTASSIUM 3.5 MMOL/L (3.5-5.1); SODIUM 142 MMOL/L (135-145); TOTAL CARBON DIOXIDE 20.4 MMOL/L (24-32); TOTAL PROTEIN 5.6 G/DL (6.4-8.2); eGFR > 90 ML/MIN
[2022-11-09] MEDS: pantoprazole 40MG/NS 100ML BAG 100 ML IV SCH (07:23)
[2022-11-09] MEDS: CefTRIAXone 2gm/D5W 50ml BAG 50 ML IV SCH (07:23)
[2022-11-09] MEDS: enoxaparin 40mg/0.4ml syringe SUBCUT SCH (07:24)
[2022-11-09] MEDS: docusate sodium 100mg/10ml UD cup OGT SCH ×2 (07:25→20:00)
[2022-11-09] MEDS: nystatin 15 GM powder TP SCH ×2 (07:25→20:25)
[2022-11-09] MEDS: amLODIPine 5mg tablet OGT SCH (07:26)
[2022-11-09] MEDS: metoprolol tartrate 25mg tablet OGT SCH ×2 (07:27→20:24)
[2022-11-09] MEDS: ringers solution, lacted 1,000 ML IV SCH (07:27)
--- NOTE | 2022-11-09 10:16 | NUR ---
Discussed in rounds patient's increase in respiratory requirements, now up to 70% FiO2. Change in antibiotic orders. Also, MD aware of decreased urine output between 20-35ml/hour. Continue PO Erythromycin and Fentanyl.
[2022-11-09] MEDS ORDERED: vancomycin 1,750 MG in NS 350ml IV soln IV ONE (11:15)
[2022-11-09] MEDS: cefepime 1GM in NS 100mL IVPB IV SCH ×2 (11:23→16:34)
--- NOTE | 2022-11-09 11:40 | NUR ---
F/u 10/10 Pt remains reintubated and sedated however no longer on propofol, discontinued on 11/08. Pt continues on Vital AF 1.2 kcal at goal rate 55ml/hr this morning. Noted TF held/reduced rate on 11/07 to 11/08 with rate range 0-40ml/hr given high residuals however residuals less than 500ml per EMR. Pt started on erythromycin yesterday per EMR. MD agreeable to initiating water flushes today at 120ml Q4H. LBM on 11/08 with routine bowel care per EMR. Will continue to monitor. Recommendations: 1) Continue Vital AF via OGT with 55 mL/hr goal rate to provide 1320 mL total volume/day, 1584kcal, 99 g protein, and 1071 mL water 2) additional 120 mL water flush Q4H; monitor serum Na 3) Prealbumin q Monday/ 4) Daily scaled weights 5) Routine bowel care Addendum: 11/09/22 at [address] Amended: Links added. Addendum: 11/09/22 at [address] I have reviewed and agree with note.
--- NOTE | 2022-11-09 18:04 | NUR ---
Patient continues to have decreased urine output between 25-35ml/hour. MD aware. Pt continues to saturate 90-92% on 70% FiO2 and 8PEEP. MD aware. Continue antibiotic regimen.
--- NOTE | 2022-11-09 18:26 | NUR ---
Problems reprioritized. Patient report given, questions answered & plan of care reviewed with Ganga GUTIERRES.
[2022-11-09] MEDS: polyethylene glycol 3350 17gm powd pack OGT SCH (21:00)
[2022-11-09] MEDS ORDERED: acetaminophen 1,000mg/100ml IV 100 ML IV PRN (21:40)
[2022-11-09] MEDS ORDERED: furosemide 20 MG/2 ML vial IV ONE (21:45)
[2022-11-09] MEDS: insulin glargine (Lantus) pen - multi-dose SQ SCH (23:24)
[2022-11-10] VITALS (39 sets, daily range): BP systolic 95–148; BP diastolic 40–68; PULSE 60–84; RESP 12–23; O2SAT 68–91
[2022-11-10] MEDS: cefepime 1GM in NS 100mL IVPB IV SCH ×4 (00:31→23:54)
[2022-11-10] MEDS: metroNIDAZOLE-Flagyl 500mg/NS 100 ML IV SCH ×4 (00:32→23:54)
[2022-11-10] MEDS: vancomycin/NS 1 GM ADD-VANTAGE 250 ML IV SCH ×3 (00:32→23:54)
[2022-11-10] MEDS: cloNIDine 0.1 mg tablet OGT SCH ×4 (00:34→23:54)
[2022-11-10] MEDS: mineral oil/petrolatum ophthal oint EACHEYE SCH ×4 (02:00→20:18)
[2022-11-10] MEDS: dexamethasone 4mg/ml inj IV SCH ×4 (03:12→20:18)
[2022-11-10] MEDS: erythromycin ethylsuccinate 200mg/5ml 200ml bottle PO SCH ×2 (03:12→06:33)
[2022-11-10] MEDS: albumin (human) 25% 100 ML IV solution IV SCH ×3 (03:14→14:00)
[2022-11-10 03:25] LABS: ABG BASE EXCESS -3.4 mmol/L (-2.0-2.0); ABG HCO3 19.3 mmol/L (22.0-26.0); ABG OXYGEN SATURATION 93.9 % (94-97); ABG PCO2 (T) 28.5 mmHg (32.0-45.0); ABG PO2 (T) 67.1 mmHg (75.0-100.0); ALLEN'S TEST POSITIVE; FCOHb 0.3 % (0.0-3.9); FMetHb 0.3 % (0.0-1.5); FO2Hb 93.3 % (94-97); PATIENT TEMPERATURE 36.8; PEEP 8 cm H2O; RESPIRATORY RATE 16 b/min; TIDAL VOLUME 400 mL; TOTAL HEMOGLOBIN 14.6 G/dl (12.0-16.0)
[2022-11-10] MEDS: hyDRALAzine 10mg tablet PO SCH ×3 (04:39→20:18)
[2022-11-10] MEDS: FENTANYL-0.9 % NACL/PF 100 ML IV SCH (04:47)
[2022-11-10 06:00] LABS: BASOPHILS % (AUTO) 0.2 % (0-1); EOSINOPHILS % (AUTO) 0 % (0-6); HEMATOCRIT 40.3 % (35.0-45.0); HEMOGLOBIN 13.4 g/dl (12.0-16.0); LYMPHOCYTES # (AUTO) 0.7 X10'3 (1.1-4.8); LYMPHOCYTES % (AUTO) 3.9 % (21-51); MEAN CORPUSCULAR HEMOGLOBIN 29.3 PG (27.0-31.0); MEAN CORPUSCULAR HGB CONC 33.4 g/dL (33.0-36.5); MEAN CORPUSCULAR VOLUME 87.8 FL (78-98); MEAN PLATELET VOLUME 8.1 FL (7.4-10.4); MONOCYTES # (AUTO) 0.8 X10'3 (0-0.9); NEUTROPHILS # (AUTO) 15.4 X10'3 (1.8-7.7); NEUTROPHILS % (AUTO) 90.9 % (42-75); PLATELET COUNT 306 X10'3 (140-440); RED BLOOD COUNT 4.59 X10'6 (4.20-5.60); RED CELL DISTRIBUTION WIDTH 14.8 % (11.5-14.5)
[2022-11-10 06:49] LABS: ALANINE AMINOTRANSFERASE 17 U/L (12-78); ALBUMIN/GLOBULIN RATIO 0.6 (1.1-1.5); ALKALINE PHOSPHATASE 61 IU/L (46-116); ANION GAP 12 (8-16); ASPARTATE AMINO TRANSFERASE 19 U/L (10-37); BILIRUBIN,TOTAL 0.4 MG/DL (0.1-1.0); BLOOD UREA NITROGEN 30 MG/DL (7-18); BUN/CREATININE RATIO 58.8 (10.0-20.0); CALCIUM 8.1 MG/DL (8.5-10.1); CHLORIDE 107 MMOL/L (99-107); CREATININE 0.51 MG/DL (0.40-0.90); GLUCOSE 177 MG/DL (70-104); MAGNESIUM 1.6 MG/DL (1.5-2.4); PHOSPHORUS 2.9 MG/DL (2.3-4.5); POTASSIUM 3.3 MMOL/L (3.5-5.1); SODIUM 140 MMOL/L (135-145); TOTAL CARBON DIOXIDE 20.6 MMOL/L (24-32); TOTAL PROTEIN 5.1 G/DL (6.4-8.2); eGFR > 90 ML/MIN
--- NOTE | 2022-11-10 07:21 | NUR ---
5816 Albumin not infused; restarted at 0700
[2022-11-10] MEDS: enoxaparin 40mg/0.4ml syringe SUBCUT SCH (07:43)
[2022-11-10] MEDS: metoprolol tartrate 25mg tablet OGT SCH ×2 (07:43→20:17)
[2022-11-10] MEDS: docusate sodium 100mg/10ml UD cup OGT SCH ×2 (07:43→20:00)
[2022-11-10] MEDS: nystatin 15 GM powder TP SCH ×2 (07:43→20:16)
[2022-11-10] MEDS: amLODIPine 5mg tablet OGT SCH (07:43)
[2022-11-10] MEDS: insulin regular, human U-100 3ml vial - multi-dose SQ SCH ×2 (07:52→13:54)
[2022-11-10] MEDS: POTASSIUM BICARB 20meq eff tab 20 MEQ TABLET.EFF OGT PRN ×2 (07:55→11:45)
[2022-11-10] MEDS: pantoprazole 40MG/NS 100ML BAG 100 ML IV SCH (08:05)
--- NOTE | 2022-11-10 08:15 | NUR ---
Dr. Juárez at bedside rounding; aware of decreased urine output so far 20-35ml/hour. Orders to D/C Albumin. Hold Lasix for now. MD also aware of o2 saturation 88-92 on 70% Fio2 and PEEP 8.
[2022-11-10] MEDS: nitroGLYCERIN-Tridil 50MG/D5W 250 ML IV SCH (08:45)
--- NOTE | 2022-11-10 18:20 | NUR ---
Problems reprioritized. Patient report given, questions answered & plan of care reviewed with Ganga GUTIERRES.
[2022-11-10] MEDS: polyethylene glycol 3350 17gm powd pack OGT SCH (21:00)
[2022-11-10] MEDS ORDERED: ipratropium/albuterol 3ml nebule NEB PRN (21:45)
[2022-11-10] MEDS: insulin glargine (Lantus) pen - multi-dose SQ SCH (21:58)
[2022-11-10] MEDS ORDERED: VANCOMYCIN LEVEL IV ONE (23:30)
[2022-11-11] VITALS (33 sets, daily range): BP systolic 84–190; BP diastolic 37–84; PULSE 55–93; RESP 15–30; O2SAT 65–96
[2022-11-11] MEDS: VANCOMYCIN 750MG IV in NS 250 ML IV SCH ×3 (00:32→23:43)
[2022-11-11] MEDS: ondansetron/PF 4mg/2ml inj IV PRN ×2 (00:48→07:27)
[2022-11-11] MEDS: dexamethasone 4mg/ml inj IV SCH ×3 (02:00→21:11)
[2022-11-11] MEDS: mineral oil/petrolatum ophthal oint EACHEYE SCH ×4 (02:20→20:00)
[2022-11-11] MEDS: hyDRALAzine 10mg tablet PO SCH ×3 (04:00→21:13)
[2022-11-11 05:26] LABS: ABG BASE EXCESS -3.2 mmol/L (-2.0-2.0); ABG OXYGEN SATURATION 88.8 % (94-97); ABG PCO2 (T) 27.2 mmHg (32.0-45.0); ABG PO2 (T) 56.4 mmHg (75.0-100.0); ALLEN'S TEST Modified; FMetHb 0.3 % (0.0-1.5); FO2Hb 88.5 % (94-97); PATIENT TEMPERATURE 37.3; PEEP 8 cm H2O; RESPIRATORY RATE 16 b/min; TIDAL VOLUME 400 mL
[2022-11-11 06:20] LABS: BASOPHILS # (AUTO) 0.1 X10'3 (0-0.2); BASOPHILS % (AUTO) 0.3 % (0-1); EOSINOPHILS % (AUTO) 0 % (0-6); HEMATOCRIT 39.6 % (35.0-45.0); HEMOGLOBIN 13.1 g/dl (12.0-16.0); LYMPHOCYTES # (AUTO) 1.4 X10'3 (1.1-4.8); LYMPHOCYTES % (AUTO) 6.5 % (21-51); MEAN CORPUSCULAR HEMOGLOBIN 29.3 PG (27.0-31.0); MEAN CORPUSCULAR VOLUME 88.8 FL (78-98); MEAN PLATELET VOLUME 8.5 FL (7.4-10.4); MONOCYTES # (AUTO) 1.5 X10'3 (0-0.9); MONOCYTES % (AUTO) 7.3 % (2-12); NEUTROPHILS # (AUTO) 18.2 X10'3 (1.8-7.7); NEUTROPHILS % (AUTO) 85.9 % (42-75); PLATELET COUNT 311 X10'3 (140-440); RED BLOOD COUNT 4.47 X10'6 (4.20-5.60); WHITE BLOOD COUNT 21.2 X10'3 (4.5-11.0)
[2022-11-11 06:27] LABS: ALANINE AMINOTRANSFERASE 16 U/L (12-78); ALBUMIN 2.3 G/DL (3.4-5.0); ALBUMIN/GLOBULIN RATIO 0.8 (1.1-1.5); ALKALINE PHOSPHATASE 52 IU/L (46-116); ANION GAP 13 (8-16); ASPARTATE AMINO TRANSFERASE 15 U/L (10-37); BILIRUBIN,TOTAL 0.5 MG/DL (0.1-1.0); BLOOD UREA NITROGEN 37 MG/DL (7-18); BUN/CREATININE RATIO 84.1 (10.0-20.0); CALCIUM 8.3 MG/DL (8.5-10.1); CHLORIDE 109 MMOL/L (99-107); CREATININE 0.44 MG/DL (0.40-0.90); GLUCOSE 158 MG/DL (70-104); MAGNESIUM 1.7 MG/DL (1.5-2.4); PHOSPHORUS 2.7 MG/DL (2.3-4.5); POTASSIUM 3.4 MMOL/L (3.5-5.1); SODIUM 142 MMOL/L (135-145); TOTAL PROTEIN 5.1 G/DL (6.4-8.2); eGFR > 90 ML/MIN
--- NOTE | 2022-11-11 06:30 | NUR ---
Patient in room CICU 2009. I have received report from MAIN and had the opportunity to ask questions and assume patient care.
--- NOTE | 2022-11-11 06:39 | NUR ---
PT USES CALL FREITAS- ASKED TO WRITE-SOME DIFFICULTY IN UNDERSTANDING- BUT WORRIES ABOUT SAT PROBE, REASSURED. MINIMAL SEDATION. MUSIC ON. SATS 90 TO 92% ON 85%. GENERALIZED EDEMA.
[2022-11-11] MEDS: FENTANYL-0.9 % NACL/PF 100 ML IV SCH ×3 (06:59→20:20)
[2022-11-11] MEDS: cefepime 1GM in NS 100mL IVPB IV SCH ×3 (07:25→23:44)
[2022-11-11] MEDS: metroNIDAZOLE-Flagyl 500mg/NS 100 ML IV SCH ×3 (07:26→23:44)
[2022-11-11] MEDS: pantoprazole 40MG/NS 100ML BAG 100 ML IV SCH (07:26)
[2022-11-11] MEDS: enoxaparin 40mg/0.4ml syringe SUBCUT SCH (07:28)
[2022-11-11] MEDS: cloNIDine 0.1 mg tablet OGT SCH ×2 (07:29→15:45)
[2022-11-11] MEDS: amLODIPine 5mg tablet OGT SCH (07:29)
[2022-11-11] MEDS: metoprolol tartrate 25mg tablet OGT SCH ×2 (07:29→21:12)
[2022-11-11] MEDS: POTASSIUM BICARB 20meq eff tab 20 MEQ TABLET.EFF OGT PRN ×3 (07:30→15:48)
[2022-11-11] MEDS ORDERED: dexmedetomidin/NS 400mcg/100ml 100 ML IV PRN (07:55)
[2022-11-11] MEDS: docusate sodium 100mg/10ml UD cup OGT SCH ×2 (08:00→20:00)
[2022-11-11] MEDS: nystatin 15 GM powder TP SCH ×2 (08:00→21:13)
[2022-11-11] MEDS ORDERED: furosemide 10 MG/1 ML 10ml inj IV ONE (08:05)
[2022-11-11] MEDS: insulin regular, human U-100 3ml vial - multi-dose SQ SCH ×3 (08:28→21:25)
--- NOTE | 2022-11-11 10:00 | NUR ---
continued to be anxious and restless. Fentanyl increased up to 250mcg. Precedex added up to .8. sats 86 to 87 with peep from 8 to 12. fio2 then up to 95% with sats at 88. rr at 30 to 27. discussion with mds- precedex dcd and antonette added. pt finally to sleep, rr to 18, sats to 93%. large diarrhea of brown stool. caregiver and son here- anxiety continued with them- all until hermelindarijaneen added. caregiver wants medical poa, son doesnt want caregiver to have. pt did nod yes when asked if ok that caregiver have medical poa. call to case coordinator and then administrator social welfare re this.
[2022-11-11] MEDS ORDERED: propofol 1000mg/100ml bottle 100 ML IV ONE (10:02)
[2022-11-11] MEDS: propofol 1000mg/100ml bottle 100 ML IV SCH ×2 (10:06→23:43)
--- NOTE | 2022-11-11 10:38 | NUR ---
Reassessment: Pt remains intubated and tolerating TF at goal rate with GRV WNL. Propofol resumed, visualized at bedside to be running at 4.26 mL/hr providing 112 kcal/day, no changes to TF goal rate warranted at this time. LBM 11/10 per EMR. Will continue to follow and make recommendations as appropriate. Recommendations: 1) Given Propofol at 4.26 mL/hr (112 kcal/day), continuous Vital AF via OGT with 55 mL/hr goal rate to provide 1320 mL total volume/day, 1584 kcal, 99 g protein, and 1071 mL water 2) Monitor Propofol rate and need to adjust recs; IF Propofol discontinued increase Vital AF goal rate to 65 mL/hr 3) Additional 120 mL water flush Q4H; monitor serum Na 4) Prealbumin q Monday/ 5) Daily scaled weights 6) Routine bowel care Addendum: 11/11/22 at [address] Amended: Links added.
[2022-11-11 12:23] LABS: HIV ANTIBODY 1&2 RAPID NON-REACTIVE (Neg)
--- NOTE | 2022-11-11 15:00 | NUR ---
pt sedated on fentanyl and diprivan. sbp down to 80's- diprivan decreased to 5, then 3 mcg
[2022-11-11] MEDS: polyethylene glycol 3350 17gm powd pack OGT SCH (21:00)
[2022-11-11] MEDS: furosemide 40mg/4ml inj IV SCH (21:11)
[2022-11-11] MEDS: insulin glargine (Lantus) pen - multi-dose SQ SCH (21:24)
[2022-11-12] VITALS (35 sets, daily range): BP systolic 87–175; BP diastolic 37–94; PULSE 59–101; RESP 14–20; O2SAT 60–96
[2022-11-12] MEDS: mineral oil/petrolatum ophthal oint EACHEYE SCH ×4 (02:04→20:00)
[2022-11-12] MEDS: insulin regular, human U-100 3ml vial - multi-dose SQ SCH ×4 (02:05→21:24)
[2022-11-12 02:49] LABS: BASOPHILS % (AUTO) 0.2 % (0-1); EOSINOPHILS % (AUTO) 0.1 % (0-6); HEMATOCRIT 35.2 % (35.0-45.0); HEMOGLOBIN 11.6 g/dl (12.0-16.0); LYMPHOCYTES # (AUTO) 0.7 X10'3 (1.1-4.8); LYMPHOCYTES % (AUTO) 3.9 % (21-51); MEAN CORPUSCULAR HEMOGLOBIN 29.3 PG (27.0-31.0); MEAN CORPUSCULAR VOLUME 88.7 FL (78-98); MEAN PLATELET VOLUME 8.6 FL (7.4-10.4); MONOCYTES % (AUTO) 5.6 % (2-12); NEUTROPHILS # (AUTO) 15.7 X10'3 (1.8-7.7); NEUTROPHILS % (AUTO) 90.2 % (42-75); PLATELET COUNT 210 X10'3 (140-440); RED BLOOD COUNT 3.96 X10'6 (4.20-5.60); WHITE BLOOD COUNT 17.4 X10'3 (4.5-11.0)
[2022-11-12 03:12] LABS: ALANINE AMINOTRANSFERASE 14 U/L (12-78); ALBUMIN 1.9 G/DL (3.4-5.0); ALBUMIN/GLOBULIN RATIO 0.7 (1.1-1.5); ALKALINE PHOSPHATASE 47 IU/L (46-116); ANION GAP 13 (8-16); ASPARTATE AMINO TRANSFERASE 13 U/L (10-37); BILIRUBIN,TOTAL 0.3 MG/DL (0.1-1.0); BLOOD UREA NITROGEN 43 MG/DL (7-18); BUN/CREATININE RATIO 72.9 (10.0-20.0); CALCIUM 7.8 MG/DL (8.5-10.1); CHLORIDE 110 MMOL/L (99-107); CREATININE 0.59 MG/DL (0.40-0.90); GLUCOSE 153 MG/DL (70-104); MAGNESIUM 1.7 MG/DL (1.5-2.4); PHOSPHORUS 3.3 MG/DL (2.3-4.5); POTASSIUM 4.2 MMOL/L (3.5-5.1); SODIUM 143 MMOL/L (135-145); TOTAL CARBON DIOXIDE 20.5 MMOL/L (24-32); TOTAL PROTEIN 4.7 G/DL (6.4-8.2); TRIGLYCERIDES 58 MG/DL (20-135); eGFR > 90 ML/MIN
[2022-11-12 03:30] LABS: ABG BASE EXCESS -4.7 mmol/L (-2.0-2.0); ABG HCO3 19.6 mmol/L (22.0-26.0); ABG OXYGEN SATURATION 91.9 % (94-97); ABG PCO2 (T) 34.3 mmHg (32.0-45.0); ABG PO2 (T) 67.5 mmHg (75.0-100.0); ALLEN'S TEST Modified; FCOHb 0.3 % (0.0-3.9); FMetHb 0.3 % (0.0-1.5); FO2Hb 91.3 % (94-97); PATIENT TEMPERATURE 37.3; PEEP 12 cm H2O; RESPIRATORY RATE 14 b/min; TIDAL VOLUME 400 mL; TOTAL HEMOGLOBIN 13.6 G/dl (12.0-16.0)
[2022-11-12] MEDS: hyDRALAzine 10mg tablet PO SCH ×3 (04:00→20:00)
--- NOTE | 2022-11-12 06:30 | NUR ---
Patient in room CICU 2009. I have received report from boris lan and had the opportunity to ask questions and assume patient care.
[2022-11-12 07:51] LABS: ANISOCYTOSIS 1+; PLATELET ESTIMATE NORMAL; TOTAL CELLS COUNTED 100
[2022-11-12] MEDS: metoprolol tartrate 25mg tablet OGT SCH ×2 (08:00→21:21)
[2022-11-12] MEDS: cloNIDine 0.1 mg tablet OGT SCH ×3 (08:00→16:49)
[2022-11-12] MEDS: amLODIPine 5mg tablet OGT SCH (08:00)
[2022-11-12] MEDS: docusate sodium 100mg/10ml UD cup OGT SCH ×2 (08:00→19:39)
--- NOTE | 2022-11-12 08:00 | NUR ---
pt awake despite sedation, but smiling, pretending to move with music. obeys commands, calm. son mercedes in-asked pt if she had decided to put zoe, her caregiver as her medical poa. she nodded yes. son states that is not a good idea. nurse told son that discussing this was upsetting pt and that she cant legally sign as she is sedated.
[2022-11-12] MEDS: dexamethasone 4mg/ml inj IV SCH ×2 (08:14→21:20)
[2022-11-12] MEDS: enoxaparin 40mg/0.4ml syringe SUBCUT SCH (08:15)
[2022-11-12] MEDS: nystatin 15 GM powder TP SCH ×2 (08:15→20:00)
[2022-11-12] MEDS: metroNIDAZOLE-Flagyl 500mg/NS 100 ML IV SCH ×2 (08:16→16:49)
[2022-11-12] MEDS: cefepime 1GM in NS 100mL IVPB IV SCH ×2 (08:16→16:50)
[2022-11-12] MEDS: pantoprazole 40MG/NS 100ML BAG 100 ML IV SCH (08:16)
[2022-11-12] MEDS: furosemide 40mg/4ml inj IV SCH ×2 (08:17→21:20)
[2022-11-12] MEDS: nitroGLYCERIN-Tridil 50MG/D5W 250 ML IV SCH (08:45)
[2022-11-12] MEDS: FENTANYL-0.9 % NACL/PF 100 ML IV SCH ×2 (11:22→18:22)
[2022-11-12] MEDS ORDERED: VANCOMYCIN LEVEL IV ONE (11:30)
[2022-11-12] MEDS: VANCOMYCIN 750MG IV in NS 250 ML IV SCH ×2 (12:00→22:28)
--- NOTE | 2022-11-12 12:00 | NUR ---
caregiver zoe in- stating son had grabbed him at the house before coming to hospital over medical poa. discussed with him about notifying police, which he did and possibly not visiting together. aware of securitys assistance if needed. diprivan increased and later decreased as questionable how much pt was getting as tubing malfunctioning r/t port closed.
[2022-11-12] MEDS: propofol 1000mg/100ml bottle 100 ML IV SCH (16:58)
--- NOTE | 2022-11-12 18:30 | NUR ---
Patient in room CICU 2009. I have received report from Lavern GUTIERRES and had the opportunity to ask questions and assume patient care.
[2022-11-12] MEDS: polyethylene glycol 3350 17gm powd pack OGT SCH (21:00)
[2022-11-12] MEDS: insulin glargine (Lantus) pen - multi-dose SQ SCH (21:23)
[2022-11-13] VITALS (36 sets, daily range): BP systolic 96–168; BP diastolic 36–79; PULSE 60–89; RESP 14–26; O2SAT 85–96
[2022-11-13] MEDS: cloNIDine 0.1 mg tablet OGT SCH ×3 (00:21→16:16)
[2022-11-13] MEDS: cefepime 1GM in NS 100mL IVPB IV SCH ×2 (00:22→07:42)
[2022-11-13] MEDS: metroNIDAZOLE-Flagyl 500mg/NS 100 ML IV SCH (01:06)
[2022-11-13] MEDS: FENTANYL-0.9 % NACL/PF 100 ML IV SCH ×4 (01:07→22:02)
[2022-11-13] MEDS: mineral oil/petrolatum ophthal oint EACHEYE SCH ×4 (02:09→20:28)
[2022-11-13] MEDS: insulin regular, human U-100 3ml vial - multi-dose SQ SCH ×4 (02:11→20:48)
[2022-11-13 02:55] LABS: ABG BASE EXCESS -2.5 mmol/L (-2.0-2.0); ABG HCO3 22.5 mmol/L (22.0-26.0); ABG OXYGEN SATURATION 91.4 % (94-97); ABG PCO2 (T) 38.8 mmHg (32.0-45.0); ABG PO2 (T) 60.4 mmHg (75.0-100.0); ALLEN'S TEST Modified; FCOHb 0.3 % (0.0-3.9); FMetHb 0.3 % (0.0-1.5); FO2Hb 90.9 % (94-97); PATIENT TEMPERATURE 36.7; PEEP 12 cm H2O; RESPIRATORY RATE 14 b/min; TIDAL VOLUME 400 mL; TOTAL HEMOGLOBIN 11.7 G/dl (12.0-16.0)
[2022-11-13 03:47] LABS: BASOPHILS % (AUTO) 0.3 % (0-1); EOSINOPHILS % (AUTO) 0.2 % (0-6); HEMATOCRIT 32.7 % (35.0-45.0); HEMOGLOBIN 10.7 g/dl (12.0-16.0); LYMPHOCYTES # (AUTO) 0.7 X10'3 (1.1-4.8); MEAN CORPUSCULAR HEMOGLOBIN 29.1 PG (27.0-31.0); MEAN CORPUSCULAR HGB CONC 32.7 g/dL (33.0-36.5); MEAN CORPUSCULAR VOLUME 89.1 FL (78-98); MEAN PLATELET VOLUME 9.1 FL (7.4-10.4); MONOCYTES # (AUTO) 0.6 X10'3 (0-0.9); MONOCYTES % (AUTO) 3.4 % (2-12); NEUTROPHILS # (AUTO) 16.5 X10'3 (1.8-7.7); NEUTROPHILS % (AUTO) 92.1 % (42-75); PLATELET COUNT 161 X10'3 (140-440); RED BLOOD COUNT 3.67 X10'6 (4.20-5.60); RED CELL DISTRIBUTION WIDTH 15.1 % (11.5-14.5); WHITE BLOOD COUNT 17.9 X10'3 (4.5-11.0)
[2022-11-13 03:53] LABS: ALANINE AMINOTRANSFERASE 12 U/L (12-78); ALBUMIN 1.6 G/DL (3.4-5.0); ALBUMIN/GLOBULIN RATIO 0.5 (1.1-1.5); ALKALINE PHOSPHATASE 54 IU/L (46-116); ANION GAP 11 (8-16); ASPARTATE AMINO TRANSFERASE 16 U/L (10-37); BILIRUBIN,TOTAL 0.4 MG/DL (0.1-1.0); BLOOD UREA NITROGEN 46 MG/DL (7-18); BUN/CREATININE RATIO 79.3 (10.0-20.0); CALCIUM 7.8 MG/DL (8.5-10.1); CHLORIDE 110 MMOL/L (99-107); CREATININE 0.58 MG/DL (0.40-0.90); GLUCOSE 134 MG/DL (70-104); MAGNESIUM 1.6 MG/DL (1.5-2.4); POTASSIUM 3.8 MMOL/L (3.5-5.1); SODIUM 143 MMOL/L (135-145); TOTAL CARBON DIOXIDE 21.9 MMOL/L (24-32); TOTAL PROTEIN 4.6 G/DL (6.4-8.2); eGFR > 90 ML/MIN
[2022-11-13] MEDS: hyDRALAzine 10mg tablet PO SCH ×3 (04:00→20:00)
[2022-11-13] MEDS: propofol 1000mg/100ml bottle 100 ML IV SCH ×2 (04:27→15:24)
--- NOTE | 2022-11-13 06:42 | NUR ---
Problems reprioritized. Patient report given, questions answered & plan of care reviewed with Samanta GUTIERRES.
[2022-11-13] MEDS: docusate sodium 100mg/10ml UD cup OGT SCH ×2 (07:20→20:00)
[2022-11-13] MEDS: furosemide 40mg/4ml inj IV SCH ×2 (07:41→20:32)
[2022-11-13] MEDS: dexamethasone 4mg/ml inj IV SCH ×4 (07:41→20:32)
[2022-11-13] MEDS: pantoprazole 40MG/NS 100ML BAG 100 ML IV SCH (07:42)
[2022-11-13] MEDS: nystatin 15 GM powder TP SCH ×2 (07:44→20:31)
[2022-11-13] MEDS: enoxaparin 40mg/0.4ml syringe SUBCUT SCH (07:44)
[2022-11-13] MEDS: metoprolol tartrate 25mg tablet OGT SCH ×2 (07:45→20:31)
[2022-11-13] MEDS: amLODIPine 5mg tablet OGT SCH (07:45)
[2022-11-13] MEDS ORDERED: VORICONAZOLE IV SCH (08:00)
[2022-11-13] MEDS ORDERED: NORMAL SALINE IV SCH (08:00)
[2022-11-13] MEDS: meropenem inj 1 GM in normal saline 100ml IV soln 100 ML IV SCH (15:19)
--- NOTE | 2022-11-13 18:25 | NUR ---
Patient in room CICU 2009. I have received report from Samanta GUTIERRES and had the opportunity to ask questions and assume patient care.
[2022-11-13] MEDS: polyethylene glycol 3350 17gm powd pack OGT SCH (20:31)
[2022-11-13] MEDS: insulin glargine (Lantus) pen - multi-dose SQ SCH (20:46)
[2022-11-13] MEDS ORDERED: hydrALAZINE 20mg/ml inj. IV PRN (21:15)
--- NOTE | 2022-11-13 21:45 | NUR ---
Rounds with Jessica, orders to hold scheduled blood pressure meds to keep pt well sedated, can give PRN IV antihypertensives if needed.
[2022-11-13] MEDS: lactobacillus acidophilus cap PO SCH (22:05)
[2022-11-13] MEDS: VANCOMYCIN 750MG IV in NS 250 ML IV SCH (23:13)
[2022-11-14] VITALS (36 sets, daily range): BP systolic 94–162; BP diastolic 34–78; PULSE 57–83; RESP 13–20; O2SAT 90–100
[2022-11-14] MEDS: meropenem inj 1 GM in normal saline 100ml IV soln 100 ML IV SCH ×3 (00:14→15:15)
[2022-11-14] MEDS: propofol 1000mg/100ml bottle 100 ML IV SCH ×3 (00:14→16:31)
[2022-11-14] MEDS: mineral oil/petrolatum ophthal oint EACHEYE SCH ×4 (02:16→20:39)
[2022-11-14] MEDS: dexamethasone 4mg/ml inj IV SCH ×4 (02:17→20:48)
[2022-11-14] MEDS: insulin regular, human U-100 3ml vial - multi-dose SQ SCH ×4 (02:21→20:59)
[2022-11-14 02:41] LABS: BASOPHILS % (AUTO) 0.2 % (0-1); EOSINOPHILS % (AUTO) 0 % (0-6); HEMATOCRIT 34.3 % (35.0-45.0); HEMOGLOBIN 11.1 g/dl (12.0-16.0); LYMPHOCYTES # (AUTO) 0.5 X10'3 (1.1-4.8); MEAN CORPUSCULAR HGB CONC 32.3 g/dL (33.0-36.5); MEAN CORPUSCULAR VOLUME 89.7 FL (78-98); MEAN PLATELET VOLUME 9.6 FL (7.4-10.4); MONOCYTES # (AUTO) 0.4 X10'3 (0-0.9); MONOCYTES % (AUTO) 1.6 % (2-12); NEUTROPHILS # (AUTO) 22.3 X10'3 (1.8-7.7); NEUTROPHILS % (AUTO) 96.2 % (42-75); PLATELET COUNT 169 X10'3 (140-440); RED BLOOD COUNT 3.82 X10'6 (4.20-5.60); RED CELL DISTRIBUTION WIDTH 15.7 % (11.5-14.5); WHITE BLOOD COUNT 23.2 X10'3 (4.5-11.0)
[2022-11-14 02:58] LABS: ALANINE AMINOTRANSFERASE 12 U/L (12-78); ALBUMIN 1.7 G/DL (3.4-5.0); ALBUMIN/GLOBULIN RATIO 0.5 (1.1-1.5); ALKALINE PHOSPHATASE 68 IU/L (46-116); ANION GAP 13 (8-16); ASPARTATE AMINO TRANSFERASE 23 U/L (10-37); BILIRUBIN,TOTAL 0.3 MG/DL (0.1-1.0); BLOOD UREA NITROGEN 50 MG/DL (7-18); BUN/CREATININE RATIO 83.3 (10.0-20.0); CALCIUM 8.3 MG/DL (8.5-10.1); CHLORIDE 107 MMOL/L (99-107); GLUCOSE 151 MG/DL (70-104); MAGNESIUM 1.8 MG/DL (1.5-2.4); PHOSPHORUS 3.5 MG/DL (2.3-4.5); POTASSIUM 4.1 MMOL/L (3.5-5.1); SODIUM 142 MMOL/L (135-145); TOTAL CARBON DIOXIDE 21.6 MMOL/L (24-32); TOTAL PROTEIN 5.2 G/DL (6.4-8.2); eGFR > 90 ML/MIN
[2022-11-14 03:05] LABS: ABG BASE EXCESS -5.4 mmol/L (-2.0-2.0); ABG HCO3 20.5 mmol/L (22.0-26.0); ABG OXYGEN SATURATION 88.1 % (94-97); ABG PCO2 (T) 40.3 mmHg (32.0-45.0); ABG PO2 (T) 53.9 mmHg (75.0-100.0); ALLEN'S TEST Modified; FCOHb 0.3 % (0.0-3.9); FMetHb 0.2 % (0.0-1.5); FO2Hb 87.7 % (94-97); PATIENT TEMPERATURE 36.3; PEEP 12 cm H2O; RESPIRATORY RATE 14 b/min; TIDAL VOLUME 400 mL; TOTAL HEMOGLOBIN 12.4 G/dl (12.0-16.0)
--- NOTE | 2022-11-14 03:54 | NUR ---
Critical ABG pO2 53.9. Debow changed volume to 350 with follow up ABG. Sedate more.
[2022-11-14] MEDS: hyDRALAzine 10mg tablet PO SCH (04:00)
[2022-11-14] MEDS: FENTANYL-0.9 % NACL/PF 100 ML IV SCH ×4 (04:41→22:22)
--- NOTE | 2022-11-14 06:00 | NUR ---
Patient in room CICU 2009. I have received report from Nery GUTIERRES and had the opportunity to ask questions and assume patient care.
--- NOTE | 2022-11-14 06:28 | NUR ---
Problems reprioritized. Patient report given, questions answered & plan of care reviewed with Samanta GUTIERRES.
[2022-11-14] MEDS: docusate sodium 100mg/10ml UD cup OGT SCH ×2 (07:14→20:00)
[2022-11-14] MEDS: pantoprazole 40MG/NS 100ML BAG 100 ML IV SCH (07:21)
[2022-11-14] MEDS: furosemide 40mg/4ml inj IV SCH ×3 (07:21→20:48)
[2022-11-14] MEDS: enoxaparin 40mg/0.4ml syringe SUBCUT SCH (07:22)
[2022-11-14] MEDS: nystatin 15 GM powder TP SCH ×2 (07:22→20:49)
[2022-11-14] MEDS: amLODIPine 5mg tablet OGT SCH (07:23)
[2022-11-14] MEDS: metoprolol tartrate 25mg tablet OGT SCH ×2 (07:23→20:00)
[2022-11-14] MEDS: cloNIDine 0.1 mg tablet OGT SCH ×3 (07:24→15:15)
[2022-11-14] MEDS: lactobacillus acidophilus cap PO SCH (08:38)
[2022-11-14] MEDS: fluconazole/NS 400mg/200ml bag 200 ML IV SCH (08:38)
[2022-11-14] MEDS: nitroGLYCERIN-Tridil 50MG/D5W 250 ML IV SCH (08:45)
[2022-11-14] MEDS ORDERED: DEXTROSE 15 GM of carb/4 tabs (each vial/BOTTLE has 4 tablets) OGT PRN ×2 (09:53→09:54)
[2022-11-14] MEDS ORDERED: lactobacillus acidophilus cap OGT SCH (09:54)
[2022-11-14] MEDS ORDERED: hyDRALAzine 10mg tablet OGT SCH (09:54)
[2022-11-14] MEDS ORDERED: lactobacillus rhamnosus 10,000 MMU CELLS/CAPSULE OGT SCH (13:44)
[2022-11-14] MEDS: lactobacillus rhamnosus 10,000 MMU CELLS/CAPSULE OGT SCH (15:15)
--- NOTE | 2022-11-14 18:24 | NUR ---
Problems reprioritized. Patient report given, questions answered & plan of care reviewed with Marlene GUTIERRES.
[2022-11-14] MEDS: polyethylene glycol 3350 17gm powd pack OGT SCH (20:39)
[2022-11-14] MEDS: POTASSIUM BICARB 20meq eff tab 20 MEQ TABLET.EFF OGT SCH (20:49)
[2022-11-14] MEDS: insulin glargine (Lantus) pen - multi-dose SQ SCH (21:00)
[2022-11-14] MEDS: VANCOMYCIN 750MG IV in NS 250 ML IV SCH (23:34)
[2022-11-15] VITALS (37 sets, daily range): BP systolic 108–170; BP diastolic 44–85; PULSE 56–89; RESP 14–20; O2SAT 87–95
[2022-11-15] MEDS: cloNIDine 0.1 mg tablet OGT SCH ×3 (00:12→15:53)
[2022-11-15] MEDS: lactobacillus rhamnosus 10,000 MMU CELLS/CAPSULE OGT SCH ×3 (00:12→15:53)
[2022-11-15] MEDS: meropenem inj 1 GM in normal saline 100ml IV soln 100 ML IV SCH ×3 (00:12→15:53)
[2022-11-15] MEDS: mineral oil/petrolatum ophthal oint EACHEYE SCH ×4 (01:17→19:59)
[2022-11-15] MEDS: dexamethasone 4mg/ml inj IV SCH ×4 (01:17→19:57)
[2022-11-15] MEDS: furosemide 40mg/4ml inj IV SCH ×4 (01:18→19:56)
[2022-11-15] MEDS: propofol 1000mg/100ml bottle 100 ML IV SCH ×3 (01:32→16:17)
[2022-11-15] MEDS: insulin regular, human U-100 3ml vial - multi-dose SQ SCH ×4 (01:38→20:16)
[2022-11-15 02:06] LABS: BASOPHILS # (AUTO) 0.3 X10'3 (0-0.2); BASOPHILS % (AUTO) 1.1 % (0-1); EOSINOPHILS % (AUTO) 0 % (0-6); HEMATOCRIT 33.9 % (35.0-45.0); HEMOGLOBIN 11.1 g/dl (12.0-16.0); LYMPHOCYTES # (AUTO) 0.4 X10'3 (1.1-4.8); LYMPHOCYTES % (AUTO) 1.4 % (21-51); MEAN CORPUSCULAR HEMOGLOBIN 29.3 PG (27.0-31.0); MEAN CORPUSCULAR HGB CONC 32.7 g/dL (33.0-36.5); MEAN CORPUSCULAR VOLUME 89.6 FL (78-98); MEAN PLATELET VOLUME 9.9 FL (7.4-10.4); MONOCYTES # (AUTO) 0.6 X10'3 (0-0.9); MONOCYTES % (AUTO) 2.2 % (2-12); NEUTROPHILS # (AUTO) 24.9 X10'3 (1.8-7.7); NEUTROPHILS % (AUTO) 95.3 % (42-75); PLATELET COUNT 242 X10'3 (140-440); RED BLOOD COUNT 3.78 X10'6 (4.20-5.60); RED CELL DISTRIBUTION WIDTH 15.6 % (11.5-14.5)
[2022-11-15 02:14] LABS: WHITE BLOOD COUNT 26.1 X10'3 (4.5-11.0)
[2022-11-15 02:22] LABS: ALANINE AMINOTRANSFERASE 14 U/L (12-78); ALBUMIN 1.6 G/DL (3.4-5.0); ALBUMIN/GLOBULIN RATIO 0.4 (1.1-1.5); ALKALINE PHOSPHATASE 133 IU/L (46-116); ANION GAP 11 (8-16); ASPARTATE AMINO TRANSFERASE 23 U/L (10-37); BILIRUBIN,TOTAL 0.3 MG/DL (0.1-1.0); BLOOD UREA NITROGEN 55 MG/DL (7-18); BUN/CREATININE RATIO 87.3 (10.0-20.0); CALCIUM 8.2 MG/DL (8.5-10.1); CHLORIDE 107 MMOL/L (99-107); CREATININE 0.63 MG/DL (0.40-0.90); GLUCOSE 158 MG/DL (70-104); MAGNESIUM 1.9 MG/DL (1.5-2.4); PHOSPHORUS 3.4 MG/DL (2.3-4.5); POTASSIUM 4.5 MMOL/L (3.5-5.1); SODIUM 141 MMOL/L (135-145); TOTAL CARBON DIOXIDE 22.7 MMOL/L (24-32); TOTAL PROTEIN 5.4 G/DL (6.4-8.2); eGFR > 90 ML/MIN
[2022-11-15] MEDS: FENTANYL-0.9 % NACL/PF 100 ML IV SCH ×4 (02:52→19:56)
[2022-11-15 03:03] LABS: ABG BASE EXCESS -4.7 mmol/L (-2.0-2.0); ABG HCO3 21.9 mmol/L (22.0-26.0); ABG OXYGEN SATURATION 91.8 % (94-97); ABG PCO2 (T) 45.7 mmHg (32.0-45.0); ABG PO2 (T) 65.2 mmHg (75.0-100.0); ALLEN'S TEST Modified; FCOHb 0.3 % (0.0-3.9); FMetHb 0.3 % (0.0-1.5); FO2Hb 91.2 % (94-97); PATIENT TEMPERATURE 36.7; PEEP 12 cm H2O; RESPIRATORY RATE 14 b/min; TIDAL VOLUME 350 mL
[2022-11-15 03:11] LABS: TOTAL CELLS COUNTED 100
[2022-11-15 03:13] LABS: PLATELET ESTIMATE NORMAL
[2022-11-15] MEDS: labetalol 20mg/4ml (5mg/ml) syringe IV PRN (05:28)
--- NOTE | 2022-11-15 06:22 | NUR ---
Patient in room CICU 2009. I have received report from Marlene GUTIERRES and had the opportunity to ask questions and assume patient care.
[2022-11-15] MEDS: docusate sodium 100mg/10ml UD cup OGT SCH ×2 (07:08→19:59)
[2022-11-15] MEDS: POTASSIUM BICARB 20meq eff tab 20 MEQ TABLET.EFF OGT SCH ×2 (07:18→19:57)
[2022-11-15] MEDS: nystatin 15 GM powder TP SCH ×2 (07:18→19:58)
[2022-11-15] MEDS: metoprolol tartrate 25mg tablet OGT SCH ×2 (07:18→19:58)
[2022-11-15] MEDS: enoxaparin 40mg/0.4ml syringe SUBCUT SCH (07:19)
[2022-11-15] MEDS: pantoprazole 40MG/NS 100ML BAG 100 ML IV SCH (07:20)
[2022-11-15] MEDS: fluconazole/NS 400mg/200ml bag 200 ML IV SCH (08:19)
[2022-11-15] MEDS ORDERED: metolazone 2.5mg tablet PO ONE (08:57)
--- NOTE | 2022-11-15 12:01 | NUR ---
F/u 11/15: Pt remains intubated and tolerating TF at goal rate with GRV WNL. Propofol currently running at 12.798ml/hr providing 338kcals/day, no changes to TF rate warranted at this time. FWF stopped this morning since pt is being diuresed per physician discussion during CICU rounds. LBM via rectal tube with 300ml output. Will continue to monitor and make recommendations as appropriate. Recommendations: 1) Given Propofol at 12.798ml/hr(338kcals/day), continuous Vital AF via OGT with 55 mL/hr goal rate to provide 1320 mL total volume/day, 1584 kcal, 99 g protein, and 1071 mL water 2) Monitor Propofol rate and need to adjust recs; IF Propofol discontinued increase Vital AF goal rate to 65 mL/hr 3) no FWF per physician; monitor serum Na 4) Prealbumin q Monday/ 5) Daily scaled weights 6) Routine bowel care Addendum: 11/15/22 at [address] Amended: Links added.
--- NOTE | 2022-11-15 18:26 | NUR ---
Problems reprioritized. Patient report given, questions answered & plan of care reviewed with Belkis GUTIERRES.
[2022-11-15] MEDS: metolazone 2.5mg tablet PO SCH (19:57)
[2022-11-15 19:58] LABS: ALBUMIN 1.6 G/DL (3.4-5.0); ANION GAP 11 (8-16); BLOOD UREA NITROGEN 61 MG/DL (7-18); BUN/CREATININE RATIO 93.8 (10.0-20.0); CALCIUM 8.1 MG/DL (8.5-10.1); CHLORIDE 107 MMOL/L (99-107); CREATININE 0.65 MG/DL (0.40-0.90); GLUCOSE 186 MG/DL (70-104); MAGNESIUM 2.1 MG/DL (1.5-2.4); POTASSIUM 5.1 MMOL/L (3.5-5.1); SODIUM 141 MMOL/L (135-145); TOTAL CARBON DIOXIDE 23.2 MMOL/L (24-32); eGFR 89 ML/MIN
[2022-11-15] MEDS: polyethylene glycol 3350 17gm powd pack OGT SCH (19:58)
[2022-11-15] MEDS: insulin glargine (Lantus) pen - multi-dose SQ SCH (20:17)
[2022-11-15] MEDS ORDERED: VANCOMYCIN LEVEL IV ONE (22:30)
[2022-11-15] MEDS: VANCOMYCIN 750MG IV in NS 250 ML IV SCH (23:00)
[2022-11-16] VITALS (34 sets, daily range): BP systolic 113–219; BP diastolic 44–117; PULSE 57–79; RESP 13–21; O2SAT 87–98
[2022-11-16] MEDS ORDERED: vancomycin inj 500 MG in normal saline 100ml IV soln 100 ML IV ONE ×2
[2022-11-16] MEDS ORDERED: vancomycin inj 500 MG in normal saline 100ml IV soln 100 ML IV SCH ×2
[2022-11-16] MEDS: lactobacillus rhamnosus 10,000 MMU CELLS/CAPSULE OGT SCH ×3 (00:08→16:53)
[2022-11-16] MEDS: cloNIDine 0.1 mg tablet OGT SCH ×3 (00:08→16:53)
[2022-11-16] MEDS: meropenem inj 1 GM in normal saline 100ml IV soln 100 ML IV SCH ×3 (00:09→16:53)
[2022-11-16] MEDS: propofol 1000mg/100ml bottle 100 ML IV SCH ×5 (01:01→21:41)
[2022-11-16] MEDS: mineral oil/petrolatum ophthal oint EACHEYE SCH ×4 (02:29→20:14)
[2022-11-16] MEDS: furosemide 40mg/4ml inj IV SCH ×4 (02:29→20:13)
[2022-11-16] MEDS: dexamethasone 4mg/ml inj IV SCH ×4 (02:29→20:13)
[2022-11-16] MEDS: insulin regular, human U-100 3ml vial - multi-dose SQ SCH ×2 (02:39→20:30)
[2022-11-16 02:53] LABS: BASOPHILS # (AUTO) 0.2 X10'3 (0-0.2); BASOPHILS % (AUTO) 1.1 % (0-1); EOSINOPHILS % (AUTO) 0 % (0-6); HEMATOCRIT 32.8 % (35.0-45.0); HEMOGLOBIN 10.7 g/dl (12.0-16.0); LYMPHOCYTES # (AUTO) 0.4 X10'3 (1.1-4.8); LYMPHOCYTES % (AUTO) 2.1 % (21-51); MEAN CORPUSCULAR HEMOGLOBIN 29.5 PG (27.0-31.0); MEAN CORPUSCULAR HGB CONC 32.6 g/dL (33.0-36.5); MEAN CORPUSCULAR VOLUME 90.7 FL (78-98); MEAN PLATELET VOLUME 9.4 FL (7.4-10.4); MONOCYTES # (AUTO) 0.6 X10'3 (0-0.9); MONOCYTES % (AUTO) 3.1 % (2-12); NEUTROPHILS # (AUTO) 17.7 X10'3 (1.8-7.7); NEUTROPHILS % (AUTO) 93.7 % (42-75); PLATELET COUNT 274 X10'3 (140-440); RED BLOOD COUNT 3.61 X10'6 (4.20-5.60); RED CELL DISTRIBUTION WIDTH 15.8 % (11.5-14.5); WHITE BLOOD COUNT 18.8 X10'3 (4.5-11.0)
[2022-11-16 03:07] LABS: ABG BASE EXCESS -5.1 mmol/L (-2.0-2.0); ABG HCO3 22.4 mmol/L (22.0-26.0); ABG OXYGEN SATURATION 89.4 % (94-97); ABG PCO2 (T) 50.1 mmHg (32.0-45.0); ABG PO2 (T) 56.7 mmHg (75.0-100.0); ALLEN'S TEST POSITIVE; FCOHb 0.3 % (0.0-3.9); FMetHb 0.3 % (0.0-1.5); FO2Hb 88.9 % (94-97); PATIENT TEMPERATURE 35.9; PEEP 12 cm H2O; RESPIRATORY RATE 14 b/min; TIDAL VOLUME 350 mL; TOTAL HEMOGLOBIN 12.1 G/dl (12.0-16.0)
[2022-11-16 03:07] LABS: ALANINE AMINOTRANSFERASE 15 U/L (12-78); ALBUMIN 1.5 G/DL (3.4-5.0); ALBUMIN/GLOBULIN RATIO 0.4 (1.1-1.5); ALKALINE PHOSPHATASE 173 IU/L (46-116); ANION GAP 9 (8-16); ASPARTATE AMINO TRANSFERASE 14 U/L (10-37); BILIRUBIN,TOTAL 0.2 MG/DL (0.1-1.0); BLOOD UREA NITROGEN 63 MG/DL (7-18); BUN/CREATININE RATIO 95.5 (10.0-20.0); CHLORIDE 108 MMOL/L (99-107); CREATININE 0.66 MG/DL (0.40-0.90); GLUCOSE 161 MG/DL (70-104); PHOSPHORUS 4.1 MG/DL (2.3-4.5); POTASSIUM 5.5 MMOL/L (3.5-5.1); SODIUM 142 MMOL/L (135-145); TOTAL CARBON DIOXIDE 25.1 MMOL/L (24-32); TOTAL PROTEIN 4.9 G/DL (6.4-8.2); eGFR 87 ML/MIN
--- NOTE | 2022-11-16 06:30 | NUR ---
Patient in room CICU 2009. I have received report from NENITA Tamayo and had the opportunity to ask questions and assume patient care.
[2022-11-16] MEDS: FENTANYL-0.9 % NACL/PF 100 ML IV SCH ×3 (07:06→18:30)
[2022-11-16] MEDS: nitroGLYCERIN-Tridil 50MG/D5W 250 ML IV SCH (08:45)
[2022-11-16] MEDS: POTASSIUM BICARB 20meq eff tab 20 MEQ TABLET.EFF OGT SCH (09:18)
[2022-11-16] MEDS: docusate sodium 100mg/10ml UD cup OGT SCH ×2 (09:18→20:00)
[2022-11-16] MEDS: pantoprazole 40MG/NS 100ML BAG 100 ML IV SCH (09:18)
[2022-11-16] MEDS: metoprolol tartrate 25mg tablet OGT SCH ×2 (09:19→20:13)
[2022-11-16] MEDS: nystatin 15 GM powder TP SCH ×2 (09:21→20:14)
[2022-11-16] MEDS: enoxaparin 40mg/0.4ml syringe SUBCUT SCH (09:21)
[2022-11-16] MEDS: fluconazole/NS 400mg/200ml bag 200 ML IV SCH (10:36)
[2022-11-16] MEDS: metolazone 2.5mg tablet PO SCH ×2 (10:37→20:20)
--- NOTE | 2022-11-16 18:30 | NUR ---
Problems reprioritized. Patient report given, questions answered & plan of care reviewed with NENITA Gabriel.
[2022-11-16] MEDS: insulin glargine (Lantus) pen - multi-dose SQ SCH (20:31)
[2022-11-16] MEDS: polyethylene glycol 3350 17gm powd pack OGT SCH (21:00)
[2022-11-16] MEDS ORDERED: FENTANYL-0.9 % NACL/PF 100 ML ONE (22:32)
[2022-11-16] MEDS: linezolid 600mg/300ml PREMIX 300 ML IV SCH (22:40)
[2022-11-17] VITALS (36 sets, daily range): BP systolic 123–171; BP diastolic 36–69; PULSE 16–70; RESP 14–23; O2SAT 92–98
[2022-11-17] MEDS: FENTANYL-0.9 % NACL/PF 100 ML IV SCH ×5 (00:04→21:44)
[2022-11-17] MEDS: [UNRECOGNIZED DRUG - OTHER] IV SCH ×4 (00:10→13:27)
[2022-11-17] MEDS: DEXTROSE 5% IV SCH ×4 (00:10→13:27)
[2022-11-17] MEDS: AMPHOTERICIN B IV SCH ×4 (00:10→13:27)
[2022-11-17] MEDS: lactobacillus rhamnosus 10,000 MMU CELLS/CAPSULE OGT SCH ×3 (00:10→15:49)
[2022-11-17] MEDS: cloNIDine 0.1 mg tablet OGT SCH ×3 (00:10→15:49)
[2022-11-17] MEDS: WATER IV SCH ×4 (00:10→13:27)
[2022-11-17] MEDS: meropenem inj 1 GM in normal saline 100ml IV soln 100 ML IV SCH ×3 (00:11→15:50)
[2022-11-17] MEDS: dexamethasone 4mg/ml inj IV SCH ×2 (01:54→07:31)
[2022-11-17] MEDS: furosemide 40mg/4ml inj IV SCH ×2 (01:54→07:30)
[2022-11-17] MEDS: mineral oil/petrolatum ophthal oint EACHEYE SCH ×4 (02:47→20:24)
[2022-11-17] MEDS: labetalol 20mg/4ml (5mg/ml) syringe IV PRN (02:50)
[2022-11-17] MEDS: insulin regular, human U-100 3ml vial - multi-dose SQ SCH ×4 (03:06→20:34)
[2022-11-17 03:55] LABS: ABG BASE EXCESS -4.7 mmol/L (-2.0-2.0); ABG HCO3 22.3 mmol/L (22.0-26.0); ABG PCO2 (T) 49.8 mmHg (32.0-45.0); ABG PO2 (T) 78.8 mmHg (75.0-100.0); ALLEN'S TEST Modified; FCOHb 0.3 % (0.0-3.9); FMetHb 0.2 % (0.0-1.5); FO2Hb 93.5 % (94-97); PATIENT TEMPERATURE 37.2; PEEP 12 cm H2O; RESPIRATORY RATE 16 b/min; TIDAL VOLUME 350 mL; TOTAL HEMOGLOBIN 12.8 G/dl (12.0-16.0)
[2022-11-17] MEDS ORDERED: FENTANYL-0.9 % NACL/PF 100 ML ONE (04:48)
[2022-11-17] MEDS: propofol 1000mg/100ml bottle 100 ML IV SCH ×3 (05:04→21:48)
--- NOTE | 2022-11-17 06:27 | NUR ---
Patient in room CICU 2009. I have received report from César GUTIERRES and had the opportunity to ask questions and assume patient care.
[2022-11-17 06:31] LABS: BASOPHILS # (AUTO) 0.2 X10'3 (0-0.2); BASOPHILS % (AUTO) 0.9 % (0-1); EOSINOPHILS % (AUTO) 0 % (0-6); HEMATOCRIT 37.4 % (35.0-45.0); HEMOGLOBIN 11.9 g/dl (12.0-16.0); LYMPHOCYTES # (AUTO) 0.4 X10'3 (1.1-4.8); LYMPHOCYTES % (AUTO) 1.5 % (21-51); MEAN CORPUSCULAR HEMOGLOBIN 28.9 PG (27.0-31.0); MEAN CORPUSCULAR VOLUME 90.3 FL (78-98); MEAN PLATELET VOLUME 9.7 FL (7.4-10.4); MONOCYTES # (AUTO) 0.7 X10'3 (0-0.9); NEUTROPHILS # (AUTO) 22.8 X10'3 (1.8-7.7); NEUTROPHILS % (AUTO) 94.6 % (42-75); PLATELET COUNT 306 X10'3 (140-440); RED BLOOD COUNT 4.14 X10'6 (4.20-5.60); RED CELL DISTRIBUTION WIDTH 15.9 % (11.5-14.5); WHITE BLOOD COUNT 24.1 X10'3 (4.5-11.0)
[2022-11-17 06:35] LABS: ALANINE AMINOTRANSFERASE 21 U/L (12-78); ALBUMIN 1.7 G/DL (3.4-5.0); ALBUMIN/GLOBULIN RATIO 0.5 (1.1-1.5); ALKALINE PHOSPHATASE 307 IU/L (46-116); ANION GAP 13 (8-16); ASPARTATE AMINO TRANSFERASE 25 U/L (10-37); BILIRUBIN,TOTAL 0.4 MG/DL (0.1-1.0); BLOOD UREA NITROGEN 76 MG/DL (7-18); CALCIUM 8.1 MG/DL (8.5-10.1); CHLORIDE 103 MMOL/L (99-107); GLUCOSE 279 MG/DL (70-104); MAGNESIUM 2.4 MG/DL (1.5-2.4); PHOSPHORUS 4.6 MG/DL (2.3-4.5); POTASSIUM 5.2 MMOL/L (3.5-5.1); SODIUM 138 MMOL/L (135-145); TOTAL CARBON DIOXIDE 21.8 MMOL/L (24-32); eGFR 70 ML/MIN
[2022-11-17 07:14] LABS: PLATELET ESTIMATE NORMAL; TOTAL CELLS COUNTED 100
[2022-11-17 07:15] LABS: LARGE PLATELETS FEW
[2022-11-17] MEDS: pantoprazole 40MG/NS 100ML BAG 100 ML IV SCH (07:24)
[2022-11-17] MEDS: docusate sodium 100mg/10ml UD cup OGT SCH ×2 (07:29→20:00)
[2022-11-17] MEDS: metoprolol tartrate 25mg tablet OGT SCH ×2 (07:30→20:23)
[2022-11-17] MEDS: nystatin 15 GM powder TP SCH ×2 (07:30→20:23)
[2022-11-17] MEDS: enoxaparin 40mg/0.4ml syringe SUBCUT SCH (07:30)
[2022-11-17] MEDS: metolazone 2.5mg tablet PO SCH ×2 (07:47→20:27)
[2022-11-17] MEDS: linezolid 600mg/300ml PREMIX 300 ML IV SCH ×2 (08:27→20:24)
[2022-11-17 10:34] LABS: C DIFF SPECIMEN=DIARRHEA? ACCEPTABLE; C DIFFICILE TOXINS A&B NEGATIVE (Neg)
--- NOTE | 2022-11-17 10:49 | NUR ---
F/u: Noted pt started on Linezolid. Pt remains intubated. Low tyramine nutrition therapy education not appropriate at this time. Will continue to follow. Addendum: 11/17/22 at [address] Amended: Links added.
[2022-11-17] MEDS ORDERED: furosemide inj 100 MG in normal saline 100ml IV soln 90 ML IV SCH (11:15)
[2022-11-17] MEDS ORDERED: furosemide inj 1,000 MG in normal saline 250ml IV soln 150 ML IV SCH ×2 (11:35→11:36)
--- NOTE | 2022-11-17 18:12 | NUR ---
Problems reprioritized. Patient report given, questions answered & plan of care reviewed with César GUTIERRES.
[2022-11-17 20:17] LABS: ALBUMIN 1.5 G/DL (3.4-5.0); ANION GAP 10 (8-16); BLOOD UREA NITROGEN 74 MG/DL (7-18); BUN/CREATININE RATIO 110.4 (10.0-20.0); CALCIUM 8.3 MG/DL (8.5-10.1); CHLORIDE 105 MMOL/L (99-107); CREATININE 0.67 MG/DL (0.40-0.90); GLUCOSE 171 MG/DL (70-104); MAGNESIUM 2.2 MG/DL (1.5-2.4); PHOSPHORUS 4.4 MG/DL (2.3-4.5); POTASSIUM 4.7 MMOL/L (3.5-5.1); SODIUM 140 MMOL/L (135-145); TOTAL CARBON DIOXIDE 25.1 MMOL/L (24-32); eGFR 86 ML/MIN
[2022-11-17] MEDS: insulin glargine (Lantus) pen - multi-dose SQ SCH (20:34)
[2022-11-17] MEDS: polyethylene glycol 3350 17gm powd pack OGT SCH (21:00)
[2022-11-18] VITALS (34 sets, daily range): BP systolic 104–155; BP diastolic 34–62; PULSE 57–71; RESP 14–22; O2SAT 88–98
[2022-11-18] MEDS: meropenem inj 1 GM in normal saline 100ml IV soln 100 ML IV SCH ×3 (00:12→16:00)
[2022-11-18] MEDS: cloNIDine 0.1 mg tablet OGT SCH ×3 (00:12→16:01)
[2022-11-18] MEDS: lactobacillus rhamnosus 10,000 MMU CELLS/CAPSULE OGT SCH ×3 (00:12→16:01)
[2022-11-18] MEDS: mineral oil/petrolatum ophthal oint EACHEYE SCH ×4 (02:11→20:21)
[2022-11-18] MEDS: insulin regular, human U-100 3ml vial - multi-dose SQ SCH ×3 (02:15→20:24)
[2022-11-18 02:36] LABS: BASOPHILS # (AUTO) 0.1 X10'3 (0-0.2); BASOPHILS % (AUTO) 0.3 % (0-1); EOSINOPHILS % (AUTO) 0.1 % (0-6); HEMATOCRIT 33.4 % (35.0-45.0); HEMOGLOBIN 10.6 g/dl (12.0-16.0); LYMPHOCYTES # (AUTO) 0.9 X10'3 (1.1-4.8); LYMPHOCYTES % (AUTO) 4.2 % (21-51); MEAN CORPUSCULAR HEMOGLOBIN 28.9 PG (27.0-31.0); MEAN CORPUSCULAR HGB CONC 31.8 g/dL (33.0-36.5); MEAN CORPUSCULAR VOLUME 90.8 FL (78-98); MEAN PLATELET VOLUME 9.7 FL (7.4-10.4); MONOCYTES # (AUTO) 0.8 X10'3 (0-0.9); MONOCYTES % (AUTO) 3.9 % (2-12); NEUTROPHILS # (AUTO) 19.5 X10'3 (1.8-7.7); NEUTROPHILS % (AUTO) 91.5 % (42-75); PLATELET COUNT 243 X10'3 (140-440); RED BLOOD COUNT 3.68 X10'6 (4.20-5.60); RED CELL DISTRIBUTION WIDTH 15.5 % (11.5-14.5); WHITE BLOOD COUNT 21.3 X10'3 (4.5-11.0)
[2022-11-18 02:46] LABS: ALANINE AMINOTRANSFERASE 19 U/L (12-78); ALBUMIN 1.4 G/DL (3.4-5.0); ALBUMIN/GLOBULIN RATIO 0.5 (1.1-1.5); ALKALINE PHOSPHATASE 226 IU/L (46-116); ANION GAP 7 (8-16); ASPARTATE AMINO TRANSFERASE 20 U/L (10-37); BILIRUBIN,TOTAL 0.3 MG/DL (0.1-1.0); BLOOD UREA NITROGEN 77 MG/DL (7-18); CALCIUM 7.6 MG/DL (8.5-10.1); CHLORIDE 104 MMOL/L (99-107); GLUCOSE 131 MG/DL (70-104); MAGNESIUM 2.2 MG/DL (1.5-2.4); PHOSPHORUS 4.6 MG/DL (2.3-4.5); POTASSIUM 4.6 MMOL/L (3.5-5.1); SODIUM 138 MMOL/L (135-145); TOTAL CARBON DIOXIDE 26.7 MMOL/L (24-32); eGFR 82 ML/MIN
[2022-11-18] MEDS: FENTANYL-0.9 % NACL/PF 100 ML IV SCH ×4 (03:16→20:33)
[2022-11-18 03:54] LABS: ABG BASE EXCESS -3.8 mmol/L (-2.0-2.0); ABG HCO3 23.3 mmol/L (22.0-26.0); ABG OXYGEN SATURATION 91.7 % (94-97); ABG PCO2 (T) 49.9 mmHg (32.0-45.0); ABG PO2 (T) 62.3 mmHg (75.0-100.0); ALLEN'S TEST Modified; FCOHb 0.3 % (0.0-3.9); FMetHb 0.1 % (0.0-1.5); FO2Hb 91.3 % (94-97); PATIENT TEMPERATURE 36.4; RESPIRATORY RATE 16 b/min; TIDAL VOLUME 350 mL
[2022-11-18] MEDS: propofol 1000mg/100ml bottle 100 ML IV SCH ×3 (05:57→18:55)
--- NOTE | 2022-11-18 06:21 | NUR ---
Patient in room CICU 2009. I have received report from César GUTIERRES and had the opportunity to ask questions and assume patient care.
[2022-11-18] MEDS: metoprolol tartrate 25mg tablet OGT SCH ×2 (07:32→20:18)
[2022-11-18] MEDS: metolazone 2.5mg tablet PO SCH ×2 (07:32→20:21)
[2022-11-18] MEDS: docusate sodium 100mg/10ml UD cup OGT SCH ×2 (07:32→20:18)
[2022-11-18] MEDS: nystatin 15 GM powder TP SCH ×2 (07:32→20:18)
[2022-11-18] MEDS: enoxaparin 40mg/0.4ml syringe SUBCUT SCH (07:33)
[2022-11-18] MEDS: pantoprazole 40MG/NS 100ML BAG 100 ML IV SCH (07:34)
--- NOTE | 2022-11-18 07:58 | NUR ---
Insulin dose held this morning, BG 87mg/dl.
[2022-11-18] MEDS: nitroGLYCERIN-Tridil 50MG/D5W 250 ML IV SCH (08:45)
[2022-11-18] MEDS: linezolid 600mg/300ml PREMIX 300 ML IV SCH ×2 (09:19→20:21)
--- NOTE | 2022-11-18 09:33 | NUR ---
Amphoterecin not available, message sent to pharmacy.
[2022-11-18 10:06] LABS: ALBUMIN 1.2 G/DL (3.4-5.0); ANION GAP 11 (8-16); BLOOD UREA NITROGEN 76 MG/DL (7-18); CALCIUM 7.4 MG/DL (8.5-10.1); CHLORIDE 99 MMOL/L (99-107); CREATININE 0.76 MG/DL (0.40-0.90); GLUCOSE 319 MG/DL (70-104); PHOSPHORUS 4.2 MG/DL (2.3-4.5); POTASSIUM 4.3 MMOL/L (3.5-5.1); SODIUM 133 MMOL/L (135-145); TOTAL CARBON DIOXIDE 22.8 MMOL/L (24-32); eGFR 74 ML/MIN
--- NOTE | 2022-11-18 11:02 | NUR ---
Reassessment: Pt remains intubated and tolerating TF at goal rate with GRV WNL. Propofol visualized at bedside to be running at 12.78 mL/hr, no changes to TF goal rate warranted at this time. Pt continues with a rectal tube in place, documented with 500 mL stool output today per I&O. Routine bowel care has been held however pt did receive Colace this morning per EMR. Pt started on routine Culturelle 11/14. Will continue to follow and make recommendations as appropriate. Recommendations: 1) Given Propofol at 12.78 ml/hr (337 kcal/day), continuous Vital AF via OGT with 55 mL/hr goal rate to provide 1320 mL total volume/day, 1584 kcal, 99 g protein, and 1071 mL water 2) Monitor Propofol rate and need to adjust recs; IF Propofol discontinued increase Vital AF goal rate to 65 mL/hr 3) No water flush per physician; monitor serum Na 4) Prealbumin q Monday/ 5) Daily scaled weights 6) Bowel care per rx; routine probiotic per physician 7) Low tyramine nutrition therapy education as appropriate following extubation if warranted Addendum: 11/18/22 at [address] Amended: Links added.
[2022-11-18] MEDS: DEXTROSE 5% IV SCH ×2 (11:46)
[2022-11-18] MEDS: [UNRECOGNIZED DRUG - OTHER] IV SCH ×2 (11:46)
[2022-11-18] MEDS: WATER IV SCH ×2 (11:46)
[2022-11-18] MEDS: AMPHOTERICIN B IV SCH ×2 (11:46)
[2022-11-18] MEDS: furosemide inj 100 MG in normal saline 100ml IV soln 90 ML IV SCH ×2 (11:50→23:00)
[2022-11-18 16:16] LABS: ALBUMIN 1.3 G/DL (3.4-5.0); ANION GAP 13 (8-16); BLOOD UREA NITROGEN 84 MG/DL (7-18); BUN/CREATININE RATIO 103.7 (10.0-20.0); CHLORIDE 103 MMOL/L (99-107); CREATININE 0.81 MG/DL (0.40-0.90); GLUCOSE 112 MG/DL (70-104); MAGNESIUM 2.1 MG/DL (1.5-2.4); PHOSPHORUS 4.7 MG/DL (2.3-4.5); POTASSIUM 4.4 MMOL/L (3.5-5.1); SODIUM 138 MMOL/L (135-145); TOTAL CARBON DIOXIDE 22.4 MMOL/L (24-32); eGFR 69 ML/MIN
--- NOTE | 2022-11-18 18:19 | NUR ---
Problems reprioritized. Patient report given, questions answered & plan of care reviewed with Regla GUTIERRES.
--- NOTE | 2022-11-18 18:30 | NUR ---
Patient in room CICU 2009. I have received report from Lavern GUTIERRES and had the opportunity to ask questions and assume patient care.
[2022-11-18] MEDS: polyethylene glycol 3350 17gm powd pack OGT SCH (20:18)
[2022-11-18] MEDS: insulin glargine (Lantus) pen - multi-dose SQ SCH (20:25)
[2022-11-18 23:00] LABS: ALBUMIN 1.2 G/DL (3.4-5.0); ANION GAP 9 (8-16); BLOOD UREA NITROGEN 87 MG/DL (7-18); BUN/CREATININE RATIO 93.5 (10.0-20.0); CALCIUM 7.7 MG/DL (8.5-10.1); CHLORIDE 102 MMOL/L (99-107); CREATININE 0.93 MG/DL (0.40-0.90); GLUCOSE 112 MG/DL (70-104); PHOSPHORUS 5.1 MG/DL (2.3-4.5); POTASSIUM 4.6 MMOL/L (3.5-5.1); SODIUM 136 MMOL/L (135-145); eGFR 59 ML/MIN
[2022-11-18] MEDS ORDERED: VANCOMYCIN LEVEL IV ONE (23:30)
[2022-11-19] VITALS (35 sets, daily range): BP systolic 89–174; BP diastolic 32–58; PULSE 60–89; RESP 14–22; O2SAT 82–97
[2022-11-19] MEDS: lactobacillus rhamnosus 10,000 MMU CELLS/CAPSULE OGT SCH ×3 (00:08→16:40)
[2022-11-19] MEDS: propofol 1000mg/100ml bottle 100 ML IV SCH ×3 (02:23→22:43)
[2022-11-19] MEDS: mineral oil/petrolatum ophthal oint EACHEYE SCH ×4 (02:23→20:15)
[2022-11-19] MEDS: FENTANYL-0.9 % NACL/PF 100 ML IV SCH ×4 (02:23→18:21)
[2022-11-19 02:44] LABS: BASOPHILS # (AUTO) 0.1 X10'3 (0-0.2); BASOPHILS % (AUTO) 0.3 % (0-1); EOSINOPHILS # (AUTO) 0.4 X10'3 (0-0.9); EOSINOPHILS % (AUTO) 2.1 % (0-6); HEMATOCRIT 31.1 % (35.0-45.0); HEMOGLOBIN 10.1 g/dl (12.0-16.0); LYMPHOCYTES # (AUTO) 1.4 X10'3 (1.1-4.8); LYMPHOCYTES % (AUTO) 7.8 % (21-51); MEAN CORPUSCULAR HEMOGLOBIN 29.3 PG (27.0-31.0); MEAN CORPUSCULAR HGB CONC 32.5 g/dL (33.0-36.5); MEAN CORPUSCULAR VOLUME 90.2 FL (78-98); MEAN PLATELET VOLUME 10.1 FL (7.4-10.4); MONOCYTES # (AUTO) 0.6 X10'3 (0-0.9); MONOCYTES % (AUTO) 3.5 % (2-12); NEUTROPHILS # (AUTO) 15.7 X10'3 (1.8-7.7); NEUTROPHILS % (AUTO) 86.3 % (42-75); PLATELET COUNT 188 X10'3 (140-440); RED BLOOD COUNT 3.45 X10'6 (4.20-5.60); RED CELL DISTRIBUTION WIDTH 15.7 % (11.5-14.5); WHITE BLOOD COUNT 18.2 X10'3 (4.5-11.0)
[2022-11-19 02:55] LABS: ALBUMIN 1.3 G/DL (3.4-5.0); ANION GAP 10 (8-16); BLOOD UREA NITROGEN 92 MG/DL (7-18); BUN/CREATININE RATIO 96.8 (10.0-20.0); CALCIUM 7.9 MG/DL (8.5-10.1); CHLORIDE 102 MMOL/L (99-107); CREATININE 0.95 MG/DL (0.40-0.90); GLUCOSE 96 MG/DL (70-104); MAGNESIUM 2.2 MG/DL (1.5-2.4); PHOSPHORUS 5.5 MG/DL (2.3-4.5); POTASSIUM 4.9 MMOL/L (3.5-5.1); SODIUM 136 MMOL/L (135-145); TOTAL CARBON DIOXIDE 24.2 MMOL/L (24-32); TRIGLYCERIDES 92 MG/DL (20-135); eGFR 57 ML/MIN
--- NOTE | 2022-11-19 06:18 | NUR ---
Problems reprioritized. Patient report given, questions answered & plan of care reviewed with Lavern GUTIERRES.
--- NOTE | 2022-11-19 06:30 | NUR ---
Patient in room CICU 2009. I have received report from [facility] and had the opportunity to ask questions and assume patient care.
[2022-11-19] MEDS: cloNIDine 0.1 mg tablet OGT SCH ×3 (08:00→16:00)
[2022-11-19] MEDS: metoprolol tartrate 25mg tablet OGT SCH ×2 (08:00→20:00)
[2022-11-19] MEDS: metolazone 2.5mg tablet PO SCH ×2 (08:00→20:15)
[2022-11-19] MEDS: docusate sodium 100mg/10ml UD cup OGT SCH ×2 (08:00→20:00)
[2022-11-19] MEDS: furosemide inj 100 MG in normal saline 100ml IV soln 90 ML IV SCH ×2 (09:00→19:15)
[2022-11-19] MEDS: pantoprazole 40MG/NS 100ML BAG 100 ML IV SCH (09:03)
[2022-11-19] MEDS: meropenem inj 1 GM in normal saline 100ml IV soln 100 ML IV SCH ×2 (09:04→20:14)
[2022-11-19] MEDS: enoxaparin 40mg/0.4ml syringe SUBCUT SCH (09:04)
[2022-11-19] MEDS: linezolid 600mg/300ml PREMIX 300 ML IV SCH ×2 (09:04→20:14)
[2022-11-19] MEDS: nystatin 15 GM powder TP SCH ×2 (09:05→20:15)
[2022-11-19] MEDS: insulin regular, human U-100 3ml vial - multi-dose SQ SCH ×3 (09:25→20:18)
--- NOTE | 2022-11-19 10:00 | NUR ---
dr zavala here requested to talk to son- mercedes wells- will be here at 1100
[2022-11-19 10:21] LABS: ALBUMIN 1.3 G/DL (3.4-5.0); ANION GAP 12 (8-16); BLOOD UREA NITROGEN 94 MG/DL (7-18); BUN/CREATININE RATIO 89.5 (10.0-20.0); CHLORIDE 101 MMOL/L (99-107); CREATININE 1.05 MG/DL (0.40-0.90); GLUCOSE 126 MG/DL (70-104); MAGNESIUM 2.2 MG/DL (1.5-2.4); PHOSPHORUS 6.5 MG/DL (2.3-4.5); POTASSIUM 5.1 MMOL/L (3.5-5.1); SODIUM 136 MMOL/L (135-145); eGFR 51 ML/MIN
--- NOTE | 2022-11-19 11:00 | NUR ---
son here spoke with md. numerous calls by phone from son and caregiver. son wished zarina her daughter to be involved now. 2 lengthy calls from her re pt. Discussed with all dnr status, comfort care. they feel she would want everything done and has expressed this to them. nurse explained that everything has been done
[2022-11-19] MEDS: DEXTROSE 5% IV SCH ×2 (11:16)
[2022-11-19] MEDS: WATER IV SCH ×2 (11:16)
[2022-11-19] MEDS: [UNRECOGNIZED DRUG - OTHER] IV SCH ×2 (11:16)
[2022-11-19] MEDS: AMPHOTERICIN B IV SCH ×2 (11:16)
--- NOTE | 2022-11-19 14:00 | NUR ---
pt desats to 82%, fio2 from 90 to 100%. diprivan boluses given- sat 85 then 88 after sx thick sx by rt. dr zavala notified and here. pt nonresponsive, no cough. opened eyes x 1 when diprivan bottle changed today. discussed with dr ruby- pt made dnr.. little to no uo despite on lasix gtt
[2022-11-19 16:43] LABS: CRYPTOCOCCUS ANTIGEN, SERUM Negative (Negative)
[2022-11-19 16:52] LABS: ALBUMIN 1.4 G/DL (3.4-5.0); ANION GAP 14 (8-16); BLOOD UREA NITROGEN 96 MG/DL (7-18); BUN/CREATININE RATIO 83.5 (10.0-20.0); CHLORIDE 98 MMOL/L (99-107); CREATININE 1.15 MG/DL (0.40-0.90); GLUCOSE 143 MG/DL (70-104); MAGNESIUM 2.3 MG/DL (1.5-2.4); PHOSPHORUS 7.6 MG/DL (2.3-4.5); POTASSIUM 5.3 MMOL/L (3.5-5.1); SODIUM 134 MMOL/L (135-145); TOTAL CARBON DIOXIDE 21.8 MMOL/L (24-32); eGFR 46 ML/MIN
--- NOTE | 2022-11-19 17:00 | NUR ---
call to dr zavala re dnr status- he will call son to notify him of mds decision for dnr status. after this continued call from daughter re that decision. answered questions over and over again, reassured her that care will continue as is, except compressions, defib.
--- NOTE | 2022-11-19 18:30 | NUR ---
Patient in room CICU 2009. I have received report from Lavern GUTIERRES and had the opportunity to ask questions and assume patient care.
[2022-11-19] MEDS: polyethylene glycol 3350 17gm powd pack OGT SCH (20:14)
[2022-11-19] MEDS: insulin glargine (Lantus) pen - multi-dose SQ SCH (20:19)
[2022-11-20] VITALS (36 sets, daily range): BP systolic 88–184; BP diastolic 35–73; PULSE 64–88; RESP 16–27; O2SAT 84–97
[2022-11-20] MEDS: lactobacillus rhamnosus 10,000 MMU CELLS/CAPSULE OGT SCH ×4 (00:03→23:58)
[2022-11-20] MEDS: FENTANYL-0.9 % NACL/PF 100 ML IV SCH ×3 (00:08→17:37)
[2022-11-20] MEDS: mineral oil/petrolatum ophthal oint EACHEYE SCH ×4 (02:17→19:49)
[2022-11-20] MEDS: insulin regular, human U-100 3ml vial - multi-dose SQ SCH ×3 (02:19→19:53)
[2022-11-20 02:49] LABS: BASOPHILS % (AUTO) 0.1 % (0-1); EOSINOPHILS % (AUTO) 0.2 % (0-6); HEMATOCRIT 28.4 % (35.0-45.0); HEMOGLOBIN 9.1 g/dl (12.0-16.0); LYMPHOCYTES # (AUTO) 0.5 X10'3 (1.1-4.8); LYMPHOCYTES % (AUTO) 3.1 % (21-51); MEAN CORPUSCULAR HEMOGLOBIN 29.2 PG (27.0-31.0); MEAN CORPUSCULAR HGB CONC 32.1 g/dL (33.0-36.5); MEAN CORPUSCULAR VOLUME 90.8 FL (78-98); MEAN PLATELET VOLUME 10.3 FL (7.4-10.4); MONOCYTES # (AUTO) 0.3 X10'3 (0-0.9); MONOCYTES % (AUTO) 1.8 % (2-12); NEUTROPHILS # (AUTO) 16.1 X10'3 (1.8-7.7); NEUTROPHILS % (AUTO) 94.8 % (42-75); PLATELET COUNT 185 X10'3 (140-440); RED BLOOD COUNT 3.13 X10'6 (4.20-5.60); RED CELL DISTRIBUTION WIDTH 16.1 % (11.5-14.5)
[2022-11-20 03:19] LABS: ALBUMIN 1.4 G/DL (3.4-5.0); BLOOD UREA NITROGEN 102 MG/DL (7-18); CHLORIDE 97 MMOL/L (99-107); GLUCOSE 93 MG/DL (70-104); MAGNESIUM 2.3 MG/DL (1.5-2.4); POTASSIUM 5.4 MMOL/L (3.5-5.1); SODIUM 132 MMOL/L (135-145); eGFR 44 ML/MIN
[2022-11-20 03:28] LABS: ABG BASE EXCESS -8.7 mmol/L (-2.0-2.0); ABG HCO3 19.4 mmol/L (22.0-26.0); ABG OXYGEN SATURATION 92.6 % (94-97); ABG PCO2 (T) 50.7 mmHg (32.0-45.0); ABG PO2 (T) 69.1 mmHg (75.0-100.0); ALLEN'S TEST Modified; FCOHb 0.3 % (0.0-3.9); FMetHb 0.3 % (0.0-1.5); PATIENT TEMPERATURE 36.3; TIDAL VOLUME 350 mL; TOTAL HEMOGLOBIN 10.3 G/dl (12.0-16.0)
[2022-11-20 04:13] LABS: ANION GAP 14 (8-16); LACTATE DEHYDROGENASE 290 U/L (81-234); TOTAL CARBON DIOXIDE 21.2 MMOL/L (24-32)
[2022-11-20] MEDS: furosemide inj 100 MG in normal saline 100ml IV soln 90 ML IV SCH (05:00)
--- NOTE | 2022-11-20 06:30 | NUR ---
Problems reprioritized. Patient report given, questions answered & plan of care reviewed with Riya GUTIERRES.
[2022-11-20] MEDS: propofol 1000mg/100ml bottle 100 ML IV SCH ×2 (06:36→15:41)
[2022-11-20 07:35] LABS: ANISOCYTOSIS 1+; PLATELET ESTIMATE NORMAL; TOTAL CELLS COUNTED 100
[2022-11-20] MEDS: pantoprazole 40MG/NS 100ML BAG 100 ML IV SCH (07:36)
[2022-11-20] MEDS: cloNIDine 0.1 mg tablet OGT SCH ×4 (07:37→23:58)
[2022-11-20] MEDS: docusate sodium 100mg/10ml UD cup OGT SCH ×2 (07:37→19:32)
[2022-11-20] MEDS: metoprolol tartrate 25mg tablet OGT SCH (07:38)
[2022-11-20] MEDS: nystatin 15 GM powder TP SCH ×2 (07:38→19:49)
[2022-11-20] MEDS: enoxaparin 40mg/0.4ml syringe SUBCUT SCH (07:38)
[2022-11-20] MEDS: metolazone 2.5mg tablet PO SCH (07:39)
[2022-11-20] MEDS: meropenem inj 1 GM in normal saline 100ml IV soln 100 ML IV SCH ×2 (07:49→19:33)
[2022-11-20 08:23] LABS: ALBUMIN 1.4 G/DL (3.4-5.0); ANION GAP 15 (8-16); BLOOD UREA NITROGEN 103 MG/DL (7-18); BUN/CREATININE RATIO 84.4 (10.0-20.0); CALCIUM 8.2 MG/DL (8.5-10.1); CHLORIDE 97 MMOL/L (99-107); CREATININE 1.22 MG/DL (0.40-0.90); GLUCOSE 89 MG/DL (70-104); MAGNESIUM 2.2 MG/DL (1.5-2.4); PHOSPHORUS 7.9 MG/DL (2.3-4.5); POTASSIUM 5.5 MMOL/L (3.5-5.1); SODIUM 133 MMOL/L (135-145); TOTAL CARBON DIOXIDE 21.5 MMOL/L (24-32); eGFR 43 ML/MIN
[2022-11-20] MEDS: linezolid 600mg/300ml PREMIX 300 ML IV SCH ×2 (08:41→20:48)
[2022-11-20] MEDS: nitroGLYCERIN-Tridil 50MG/D5W 250 ML IV SCH (08:45)
[2022-11-20] MEDS: WATER IV SCH ×2 (10:23)
[2022-11-20] MEDS: AMPHOTERICIN B IV SCH ×2 (10:23)
[2022-11-20] MEDS: [UNRECOGNIZED DRUG - OTHER] IV SCH ×2 (10:23)
[2022-11-20] MEDS: DEXTROSE 5% IV SCH ×2 (10:23)
--- NOTE | 2022-11-20 18:25 | NUR ---
Patient in room CICU 2009. I have received report from Riya GUTIERRES and had the opportunity to ask questions and assume patient care.
[2022-11-20] MEDS: metoprolol tartrate 50mg tablet OGT SCH (19:49)
[2022-11-20] MEDS: polyethylene glycol 3350 17gm powd pack OGT SCH (19:49)
[2022-11-20] MEDS: insulin glargine (Lantus) pen - multi-dose SQ SCH (19:54)
--- NOTE | 2022-11-20 20:00 | NUR ---
Pt's registered dietetic technician unrealistic about pt's situation. Claiming he thought things were improving. Discussed at length the poor prognosis, which I and other nurses have done several times. Pt requires heavy sedation and any interactions such as oral care or repositioning drastically drop O2 Sats as low as the 60s. Pt has been 100% FiO2 for awhile with saturations often in the 80s. Scant urine output, pt had been on Lasix gtt which was stopped as it became ineffective. Addressed option of comfort care but he is hoping for a miracle and thinks aggressive care should be continued until pt's heart gives out.
[2022-11-21] VITALS (37 sets, daily range): BP systolic 85–143; BP diastolic 35–59; PULSE 62–78; RESP 21–32; O2SAT 67–93
[2022-11-21] MEDS: mineral oil/petrolatum ophthal oint EACHEYE SCH ×4 (02:22→20:11)
[2022-11-21] MEDS: insulin regular, human U-100 3ml vial - multi-dose SQ SCH (02:24)
[2022-11-21] MEDS: propofol 1000mg/100ml bottle 100 ML IV SCH ×2 (02:36→10:40)
[2022-11-21 02:38] LABS: BASOPHILS % (AUTO) 0.1 % (0-1); EOSINOPHILS # (AUTO) 0.1 X10'3 (0-0.9); EOSINOPHILS % (AUTO) 0.5 % (0-6); HEMATOCRIT 25.7 % (35.0-45.0); HEMOGLOBIN 8.6 g/dl (12.0-16.0); LYMPHOCYTES # (AUTO) 0.7 X10'3 (1.1-4.8); LYMPHOCYTES % (AUTO) 5.2 % (21-51); MEAN CORPUSCULAR HGB CONC 33.3 g/dL (33.0-36.5); MEAN CORPUSCULAR VOLUME 90.1 FL (78-98); MEAN PLATELET VOLUME 10.1 FL (7.4-10.4); MONOCYTES # (AUTO) 0.3 X10'3 (0-0.9); MONOCYTES % (AUTO) 2.5 % (2-12); NEUTROPHILS # (AUTO) 12.1 X10'3 (1.8-7.7); NEUTROPHILS % (AUTO) 91.7 % (42-75); PLATELET COUNT 164 X10'3 (140-440); RED BLOOD COUNT 2.85 X10'6 (4.20-5.60); RED CELL DISTRIBUTION WIDTH 15.8 % (11.5-14.5); WHITE BLOOD COUNT 13.2 X10'3 (4.5-11.0)
[2022-11-21 02:48] LABS: ALANINE AMINOTRANSFERASE 37 U/L (12-78); ALBUMIN 1.4 G/DL (3.4-5.0); ALBUMIN/GLOBULIN RATIO 0.4 (1.1-1.5); ALKALINE PHOSPHATASE 379 IU/L (46-116); ANION GAP 14 (8-16); ASPARTATE AMINO TRANSFERASE 43 U/L (10-37); BILIRUBIN,TOTAL 0.4 MG/DL (0.1-1.0); BLOOD UREA NITROGEN 110 MG/DL (7-18); BUN/CREATININE RATIO 72.4 (10.0-20.0); CALCIUM 8.1 MG/DL (8.5-10.1); CHLORIDE 94 MMOL/L (99-107); CREATININE 1.52 MG/DL (0.40-0.90); GLUCOSE 83 MG/DL (70-104); MAGNESIUM 2.3 MG/DL (1.5-2.4); POTASSIUM 5.6 MMOL/L (3.5-5.1); SODIUM 129 MMOL/L (135-145); TOTAL CARBON DIOXIDE 20.9 MMOL/L (24-32); TOTAL PROTEIN 4.7 G/DL (6.4-8.2); eGFR 33 ML/MIN
[2022-11-21 03:26] LABS: ABG BASE EXCESS -8.9 mmol/L (-2.0-2.0); ABG HCO3 18.2 mmol/L (22.0-26.0); ABG OXYGEN SATURATION 89.6 % (94-97); ABG PCO2 (T) 44.1 mmHg (32.0-45.0); ABG PO2 (T) 62.3 mmHg (75.0-100.0); ALLEN'S TEST Modified; FCOHb 0.3 % (0.0-3.9); FMetHb 0.3 % (0.0-1.5); FO2Hb 89.1 % (94-97); PATIENT TEMPERATURE 36.7; PEEP 12 cm H2O; RESPIRATORY RATE 16 b/min; TIDAL VOLUME 350 mL
[2022-11-21 04:30] LABS: TOTAL CELLS COUNTED 100
[2022-11-21 04:32] LABS: PLATELET ESTIMATE NORMAL
[2022-11-21] MEDS: FENTANYL-0.9 % NACL/PF 100 ML IV SCH ×2 (05:04→14:26)
--- NOTE | 2022-11-21 06:28 | NUR ---
Problems reprioritized. Patient report given, questions answered & plan of care reviewed with Riya GUTIERRES.
[2022-11-21] MEDS: pantoprazole 40MG/NS 100ML BAG 100 ML IV SCH (07:02)
[2022-11-21] MEDS: meropenem inj 1 GM in normal saline 100ml IV soln 100 ML IV SCH (07:26)
[2022-11-21] MEDS: docusate sodium 100mg/10ml UD cup OGT SCH ×2 (07:48→20:00)
[2022-11-21] MEDS: metoprolol tartrate 50mg tablet OGT SCH ×2 (07:48→20:00)
[2022-11-21] MEDS: lactobacillus rhamnosus 10,000 MMU CELLS/CAPSULE OGT SCH ×2 (07:48→15:57)
[2022-11-21] MEDS: nystatin 15 GM powder TP SCH ×2 (07:48→20:11)
[2022-11-21] MEDS: enoxaparin 40mg/0.4ml syringe SUBCUT SCH (07:48)
[2022-11-21] MEDS: cloNIDine 0.1 mg tablet OGT SCH ×2 (07:48→15:57)
[2022-11-21] MEDS: linezolid 600mg/300ml PREMIX 300 ML IV SCH (08:15)
[2022-11-21 08:16] LABS: PEEP 12 cm H2O; RESPIRATORY RATE 16 b/min
--- NOTE | 2022-11-21 09:47 | NUR ---
Dr. Chan in to see pt. Son at bedside. Son spoke with Dr. Chan re. pt. condition.
--- NOTE | 2022-11-21 16:45 | NUR ---
Vikki Rodriguez Resident notified of no urine this shift.
--- NOTE | 2022-11-21 18:20 | NUR ---
Patient in room CICU 2009. I have received report from Riya GUTIERRES and had the opportunity to ask questions and assume patient care.
--- NOTE | 2022-11-21 20:31 | NUR ---
Spoke with Geo KENDALL on phone to update on patient's current status. Informed that patient is consistently saturating in 70s-80s, and BP MAP now staying below 60. New orders received. Will continue to monitor patient.
[2022-11-21 20:52] LABS: ABG BASE EXCESS -12.4 mmol/L (-2.0-2.0); ABG HCO3 15.8 mmol/L (22.0-26.0); ABG OXYGEN SATURATION 75.5 % (94-97); ABG PO2 (T) 48.1 mmHg (75.0-100.0); ALLEN'S TEST Modified; FCOHb 0.3 % (0.0-3.9); FMetHb 0.3 % (0.0-1.5); PATIENT TEMPERATURE 36.9; PEEP 12 cm H2O; RESPIRATORY RATE 16 b/min; TIDAL VOLUME 350 mL; TOTAL HEMOGLOBIN 9.2 G/dl (12.0-16.0)
[2022-11-21] MEDS: polyethylene glycol 3350 17gm powd pack OGT SCH (21:00)
[2022-11-21] MEDS: insulin glargine (Lantus) pen - multi-dose SQ SCH (21:00)
[2022-11-21] MEDS: dexmedetomidin/NS 400mcg/100ml 100 ML IV SCH (21:13)
[2022-11-22] VITALS (36 sets, daily range): BP systolic 83–130; BP diastolic 34–59; PULSE 63–84; RESP 25–42; O2SAT 65–93
[2022-11-22] MEDS: lactobacillus rhamnosus 10,000 MMU CELLS/CAPSULE OGT SCH ×3 (00:26→16:05)
[2022-11-22] MEDS: NORepinephrine 8mg/ 250ml NS 250 ML IV PRN ×2 (00:27→13:55)
[2022-11-22] MEDS: mineral oil/petrolatum ophthal oint EACHEYE SCH ×4 (01:57→20:51)
--- NOTE | 2022-11-22 02:30 | NUR ---
MD Guardado on tele monitor to round on patient. updated on patient's current status. Changes made to ventilator settings. No other orders received. Will continue to monitor patient.
[2022-11-22 03:06] LABS: ABG BASE EXCESS -15.4 mmol/L (-2.0-2.0); ABG HCO3 12.9 mmol/L (22.0-26.0); ABG OXYGEN SATURATION 81.7 % (94-97); ABG PCO2 (T) 37.6 mmHg (32.0-45.0); ABG PO2 (T) 52.4 mmHg (75.0-100.0); ALLEN'S TEST Modified; FCOHb 0.3 % (0.0-3.9); FMetHb 0.2 % (0.0-1.5); FO2Hb 81.3 % (94-97); PATIENT TEMPERATURE 35.7; PEEP 12 cm H2O; RESPIRATORY RATE 16 b/min; TIDAL VOLUME 350 mL; TOTAL HEMOGLOBIN 9.5 G/dl (12.0-16.0)
[2022-11-22] MEDS: FENTANYL-0.9 % NACL/PF 100 ML IV SCH ×2 (04:01→16:28)
[2022-11-22 06:10] LABS: BASOPHILS # (AUTO) 0.1 X10'3 (0-0.2); BASOPHILS % (AUTO) 0.5 % (0-1); EOSINOPHILS % (AUTO) 0.1 % (0-6); HEMATOCRIT 24.4 % (35.0-45.0); HEMOGLOBIN 7.8 g/dl (12.0-16.0); LYMPHOCYTES # (AUTO) 0.5 X10'3 (1.1-4.8); LYMPHOCYTES % (AUTO) 3.5 % (21-51); MEAN CORPUSCULAR HEMOGLOBIN 29.6 PG (27.0-31.0); MEAN CORPUSCULAR VOLUME 92.6 FL (78-98); MEAN PLATELET VOLUME 10.4 FL (7.4-10.4); MONOCYTES # (AUTO) 0.4 X10'3 (0-0.9); MONOCYTES % (AUTO) 3.4 % (2-12); NEUTROPHILS # (AUTO) 12.1 X10'3 (1.8-7.7); NEUTROPHILS % (AUTO) 92.5 % (42-75); PLATELET COUNT 180 X10'3 (140-440); RED BLOOD COUNT 2.63 X10'6 (4.20-5.60); RED CELL DISTRIBUTION WIDTH 16.3 % (11.5-14.5); WHITE BLOOD COUNT 13.1 X10'3 (4.5-11.0)
--- NOTE | 2022-11-22 06:11 | NUR ---
Problems reprioritized. Patient report given, questions answered & plan of care reviewed with Riya GUTIERRES.
[2022-11-22 06:39] LABS: ALANINE AMINOTRANSFERASE 34 U/L (12-78); ALBUMIN 1.4 G/DL (3.4-5.0); ALBUMIN/GLOBULIN RATIO 0.4 (1.1-1.5); ALKALINE PHOSPHATASE 396 IU/L (46-116); ANION GAP 23 (8-16); ASPARTATE AMINO TRANSFERASE 32 U/L (10-37); BILIRUBIN,TOTAL 0.5 MG/DL (0.1-1.0); BLOOD UREA NITROGEN 127 MG/DL (7-18); BUN/CREATININE RATIO 67.9 (10.0-20.0); CALCIUM 8.1 MG/DL (8.5-10.1); CHLORIDE 92 MMOL/L (99-107); CREATININE 1.87 MG/DL (0.40-0.90); GLUCOSE 124 MG/DL (70-104); MAGNESIUM 2.4 MG/DL (1.5-2.4); SODIUM 130 MMOL/L (135-145); TOTAL CARBON DIOXIDE 15.2 MMOL/L (24-32); TOTAL PROTEIN 4.9 G/DL (6.4-8.2); eGFR 26 ML/MIN
[2022-11-22 06:42] LABS: ABG BASE EXCESS -5.5 mmol/L (-2.0-2.0); ABG HCO3 21.3 mmol/L (22.0-26.0); ABG OXYGEN SATURATION 93.5 % (94-97); ABG PCO2 (T) 45.9 mmHg (32.0-45.0); ABG PO2 (T) 65.7 mmHg (75.0-100.0); ALLEN'S TEST Modified; FCOHb 0.3 % (0.0-3.9); FMetHb 0.2 % (0.0-1.5); PATIENT TEMPERATURE 36.3; PEEP 12 cm H2O; RESPIRATORY RATE 16 b/min; TIDAL VOLUME 350 mL
[2022-11-22 06:47] LABS: POTASSIUM 6.5 MMOL/L (3.5-5.1)
[2022-11-22] MEDS: dexmedetomidin/NS 400mcg/100ml 100 ML IV SCH (07:14)
[2022-11-22] MEDS: pantoprazole 40MG/NS 100ML BAG 100 ML IV SCH (07:26)
[2022-11-22] MEDS: metoprolol tartrate 50mg tablet OGT SCH ×2 (07:27→20:00)
[2022-11-22] MEDS: cloNIDine 0.1 mg tablet OGT SCH ×3 (07:27→16:00)
[2022-11-22] MEDS: docusate sodium 100mg/10ml UD cup OGT SCH ×2 (07:27→20:00)
--- NOTE | 2022-11-22 07:30 | NUR ---
MD givens aware of SaO2. No new orders at this time. Addendum: 11/22/22 at 0734 by Samina Bermudez RT Amended: Links added.
[2022-11-22] MEDS: nystatin 15 GM powder TP SCH ×2 (07:36→20:51)
--- NOTE | 2022-11-22 07:41 | NUR ---
Left voice mail for dtr. Haney to call hospital per Dr. Curran's request. Dr. Curran reviewing chart and assessing pt. now. Aware of K 6.5
[2022-11-22] MEDS ORDERED: WATER FOR INJECTION,STERILE 71 ML in dextrose 70%-water 179 ML IV SCH (07:45)
[2022-11-22] MEDS ORDERED: CALCIUM GLUC 1gm/50ml NACL,iso 50 ML IV ONE (07:45)
[2022-11-22] MEDS ORDERED: insulin regular, human 10 units/0.1 ml syringe IV ONE (07:45)
[2022-11-22] MEDS ORDERED: enoxaparin 30mg/0.3ml syringe SUBCUT SCH (08:00)
[2022-11-22] MEDS: insulin regular, human U-100 3ml vial - multi-dose SQ SCH (08:08)
[2022-11-22 08:09] LABS: TOTAL CELLS COUNTED 100
[2022-11-22 08:10] LABS: ANISOCYTOSIS 1+; PLATELET ESTIMATE NORMAL
[2022-11-22 08:13] LABS: HYPOCHROMASIA 1+
[2022-11-22] MEDS ORDERED: dextrose 50%-water 50ml dispensing syringe IV ONE (08:15)
[2022-11-22 08:16] LABS: LARGE PLATELETS FEW; POLYCHROMASIA FEW
--- NOTE | 2022-11-22 08:23 | NUR ---
Treated K+ of 6.[address] Curran talking with son now.
--- NOTE | 2022-11-22 10:24 | NUR ---
Dr. Curran spoke with pt's dtr. via phone at length.
--- NOTE | 2022-11-22 14:05 | NUR ---
Reassessment: Pt remains intubated, no Propofol visualized to be running at bedside. Per EMR Propofol was discontinued. Current TF goal rate meets 99% estimated energy needs and 100% estimated protein needs, no adjustments warranted at this time. LBM 11/21 with 1.5 L stool output from rectal tube per I&O. Routine bowel care being held and pt continues receiving routine probiotic. Per EMR Linezolid was discontinued 11/21, low tyramine nutrition therapy education no longer indicated. Will continue to follow and make recommendations as appropriate. Recommendations: 1) Continuous Vital AF via OGT with 55 mL/hr goal rate to provide 1320 mL total volume/day, 1584 kcal, 99 g protein, and 1071 mL water; monitor need to increase rate to 65 mL/hr 2) No water flush per physician; monitor serum Na 3) Prealbumin q Monday/ 4) Daily scaled weights 5) Bowel care per rx; routine probiotic per physician Addendum: 11/22/22 at [address] Amended: Links added.
--- NOTE | 2022-11-22 18:05 | NUR ---
Patient in room CICU 2009. I have received report from Riya GUTIERRES and had the opportunity to ask questions and assume patient care.
[2022-11-22] MEDS: insulin glargine (Lantus) pen - multi-dose SQ SCH (20:51)
[2022-11-22] MEDS: polyethylene glycol 3350 17gm powd pack OGT SCH (20:51)
[2022-11-23 15:32] LABS: ATYPICAL PANCA <1:20 titer (Neg:<1:20); CYTOPLASMIC (C-ANCA) <1:20 titer (Neg:<1:20); PERINUCLEAR (P-ANCA) <1:20 titer (Neg:<1:20)
== END 2022-11-23 01:35 | DRG 870 ==
LOC: ER 07:15 → ED HOLD 11:00 → CICU 2S 13:12
PROVIDERS: ADMIT Internal Medicine Critical Care Medicine; ATTEND Internal Medicine Critical Care Medicine
PROC: 5A2204Z Restoration of Cardiac Rhythm, Single (ICD-10-PCS; 2022-11-04)
PROC: 0BH17EZ Insertion of Endotracheal Airway into Trachea, Via Natural or Artificial Opening (ICD-10-PCS; 2022-11-04)
PROC: 5A1945Z Respiratory Ventilation, 24-96 Consecutive Hours (ICD-10-PCS; 2022-11-04)
PROC: 5A09357 Assistance with Respiratory Ventilation, Less than 24 Consecutive Hours, Continuous Positive Airway Pressure (ICD-10-PCS; 2022-11-04)
PROC: 5A1955Z Respiratory Ventilation, Greater than 96 Consecutive Hours (ICD-10-PCS; principal; 2022-11-06)
PROC: 0BH18EZ Insertion of Endotracheal Airway into Trachea, Via Natural or Artificial Opening Endoscopic (ICD-10-PCS; 2022-11-06)
PROC: 05HY33Z Insertion of Infusion Device into Upper Vein, Percutaneous Approach (ICD-10-PCS; 2022-11-11)
PROC: B54NZZA Ultrasonography of Left Upper Extremity Veins, Guidance (ICD-10-PCS; 2022-11-11)
DX: A41.9 Sepsis, unspecified organism (principal); J69.0 Pneumonitis due to inhalation of food and vomit; R65.21 Severe sepsis with septic shock; J80 Acute respiratory distress syndrome; J15.9 Unspecified bacterial pneumonia; N17.9 Acute kidney failure, unspecified; Z20.822 Contact with and (suspected) exposure to COVID-19; E86.0 Dehydration; E87.6 Hypokalemia; E83.52 Hypercalcemia; I11.0 Hypertensive heart disease with heart failure; I50.9 Heart failure, unspecified; I25.10 Atherosclerotic heart disease of native coronary artery without angina pectoris; G14 Postpolio syndrome; Z66 Do not resuscitate; Z99.3 Dependence on wheelchair; Z87.891 Personal history of nicotine dependence; Z87.11 Personal history of peptic ulcer disease; Z88.0 Allergy status to penicillin; Z88.2 Allergy status to sulfonamides; I25.2 Old myocardial infarction
CPT/HCPCS: 36410; 36415; 36600; 71045; 71250; 76942; 80048; 80053; 80069; 80202; 81001; 82803; 82948; 83036; 83605; 83615; 83735; 83880; 84100; 84132; 84134; 84145; 84478; 84484; 85007; 85018; 85025; 85610; 85651; 86038; 86256; 86694; 86703; 87040; 87070; 87077; 87081; 87088; 87102; 87305; 87324; 87449; 87502; 87503; 87811; 87899; 93005; 93306; 94002; 94003; 94640; 94660; 94760; 94799; 99285; A4615; A5200; A6213; A6250; A6258; A6449; A7015; A9900; C1751; C1758; C9113; G0378; J0153; J0171; J0289; J0360; J0456; J0610; J0692; J0696; J1100; J1450; J1650; J1815; J1940; J1956; J2020; J2060; J2185; J2405; J2704; J2930; J3010; J3370; J3475; J3480; J3490; J7030; J7040; J7050; J7060; J7120; J8597; P9047